=== PATIENT | male | born 1950 | race Caucasian/White ===

== ENCOUNTER 2023-03-14 09:26 | Emergency (ER) | payer BC, SELFPAY ==
--- NOTE | 2023-03-14 09:28 | ECG_ITS ---
Test Reason : CP Blood Pressure : / mmHG Vent. Rate : 073 BPM Atrial Rate : 073 BPM P-R Int : 196 ms QRS Dur : 090 ms QT Int : 374 ms P-R-T Axes : 000 -24 000 degrees QTc Int : 412 ms Normal sinus rhythm Normal ECG No previous ECGs available Referred By: Generic ED Physician Electronically Signed By:Quirino Del Angel
[2023-03-14 09:33] VITALS: BP 151/96; PULSE 73; RESP 19; TEMP 36.6; O2SAT 98; BMI 36.5
--- NOTE | 2023-03-14 09:57 | ED_ITS ---
HPI - Chest Pain General Chief Complaint: Chest Pain Stated Complaint: chest tightness Time Seen by Provider: 03/14/23 09:52 Source: patient Mode of arrival: ambulatory Limitations: no limitations History of Present Illness HPI narrative: Patient is currently on day 6 of prednisone for poison sumac. Before going to bed he had chest tightness upper, with abdominal discomfort and bloating. Patient fell asleep, he then woke up at 3am feeling the same thing but was able to fall back to sleep, then he awoke this morning with the same discomfort. No increased pain with walking, no SOB. Patient does walk and exercise no pain with exertion. complaint: chest pain Onset (ago): hour(s) Related Data Allergies Allergy/AdvReac Type Severity Reaction Status Date / Time No Known Allergies Allergy Verified 03/14/23 09:32 Review of Systems Review of Systems: Yes all other systems are reviewed and are negative Cardiovascular: Comments: upper chest discomfort, Gastrointestinal: Comments: bloating and upper discomfort Neurologic: Denies Sensory deficit (Neuro) [facility] Social History Social History Advance Directives: No Advance Directives Information Provided: No Physical Exam Vital Signs: Vital Signs: Last Vital Signs Temp 98.0 F 03/14/23 14:09 Pulse 68 03/14/23 14:09 Resp 10 L 03/14/23 14:09 BP 152/87 H 03/14/23 14:09 Pulse Ox 98 03/14/23 14:09 O2 Del Method Room Air 03/14/23 14:09 BMI result Body Mass Index 36.5 Const: General: healthy appearing Nutritional Appearance: average body habitus Orientation/consciousness: oriented to person and patient oriented x3 Limitations: no limitations HEENT: Head: Yes normal to inspection Ears: external ears normal General nose exam: Normal external nose present Mouth: Normal oral and palatal mucosa present and oropharynx normal Throat: Yes posterior oropharynx normal Eyes: General: appearance normal, both eyes and all related structures Neck: Other: supple Neck: Yes normal visual inspection Chest: Chest palpation & inspection: normal inspection of the chest Resp: Auscultation: clear to auscultation bilaterally Cardio: Jugular venous distension: no JVD Rate: regular rate Rhythm: regular rhythm Heart sounds: S1 normal heart sound present and S2 normal heart sound present GI: Inspection: Yes normal to inspection Palpation (GI): Soft to palpation, nontender and No hepatosplenomegaly present Auscultation: normal bowel sounds : General: Yes no CVA tenderness Back/Spine/Pelvis: Back: no CVA tenderness Skin: Other: rash to extremities Neuro: General: oriented to person and patient oriented x3 Cranial nerves: Yes CN's II-XII intact bilaterally Motor exam (neuro): 5/5 motor strength present throughout Sensory Exam: No Sensory deficit (Neuro) Extrem: General: Yes normal to inspection Psych: Appearance: grossly normal Course Reevaluation(s) Reevaluation #1: EKG and serial enzymes normal, patient recent prednisone with gastric upset, will have him stop the prednisone and take PPI Time: 14:13 Medications Administered Discontinued Medications Generic Name Dose Route Start Last Admin Trade Name Freq PRN Reason Stop Dose Admin Pantoprazole Sodium 40 mg 03/14/23 10:06 03/14/23 10:50 Pantoprazole Sodium 40 Mg/10 Ml Vial IVPUSH 03/14/23 10:07 40 mg ONCE ONE Administration Medical Decision Making Differential Diagnosis Differential Diagnoses: The differential diagnosis associated with the presentation includes (chest pain, unstable angina, cardiac ischemia, gastritis abdominal discomfort was all considered) Admission/Observation Consideration of admission/observation: Escalation of care including admission/observation considered (upon arrival this 72 yo with chest pain was considered for admission) Lab Data MDM Lab Attestation statement: I reviewed the patient's lab results. 03/14/23 10:18 03/14/23 10:18 Labs: Lab Results 03/14/23 03/14/23 03/14/23 Range/Units 10:18 10:18 10:18 WBC 9.0 (4.8-10.8) X10*3/uL RBC 4.50 L (4.60-5.80) X10*6/uL Hgb 13.2 L (14.0-18.0) g/dl Hct 40.6 L (42.0-52.0) % MCV 90.2 (80.0-98.0) fL MCH 29.3 (27.0-33.0) pg MCHC 32.5 (31.0-36.0) g/dl RDW 12.9 (11.0-16.0) % Plt Count 142 L (160-400) X10*3/uL MPV 9.8 (9.4-12.4) fL Immature Gran % (Auto) 0.7 H (0.0-0.4) % Neut % (Auto) 60.3 (45-73) % Lymph % (Auto) 16.4 L (20-40) % [place] % (Auto) 14.5 H (2-11) % Eos % (Auto) 7.4 H (0-4) % Baso % (Auto) 0.7 (0-2) % Lymph # (Auto) 1.5 (1.2-4.9) X10*3/uL [place] # (Auto) 1.3 H (0.1-1.2) X10*3/uL Eos # (Auto) 0.7 H (0.0-0.4) X10*3/uL Baso # (Auto) 0.1 (0.0-0.2) X10*3/uL Abs Immat Gran (auto) 0.06 H (0.00-0.03) X10*3/uL Absolute Neuts (auto) 5.4 (2.0-8.3) x10*3/uL Absolute Nucleated RBC 0.000 (0.0-0.012) X10*3/uL Nucleated RBC % (auto) 0.0 (0.0-0.2) /100WBC Sodium 140 (135-145) mmol/L Potassium 4.2 (3.3-5.1) mmol/L Chloride 103 (96-108) mmol/L Carbon Dioxide 28 (22-29) mmol/L Anion Gap 13 (12-20) BUN 17 H (9-16) mg/dL Creatinine 0.76 (0.5-1.4) mg/dL Estim Creat Clear Calc 121.9 Estimated GFR > 60 Random Glucose 96 (60-115) mg/dL Calcium 8.9 (8.4-10.2) mg/dL Total Bilirubin 0.7 (0.0-1.0) mg/dL Direct Bilirubin 0.2 (0.0-0.5) mg/dL AST 18 (5-37) U/L ALT 26 (0-40) U/L Alkaline Phosphatase 62 (39-117) U/L Troponin I High Sens < 2.7 (<3.5-35.0) ng/L Total Protein 6.5 (6.5-8.0) g/dL Albumin 3.9 (3.5-5.0) g/dL 03/14/23 Range/Units 12:32 WBC (4.8-10.8) X10*3/uL RBC (4.60-5.80) X10*6/uL Hgb (14.0-18.0) g/dl Hct (42.0-52.0) % MCV (80.0-98.0) fL MCH (27.0-33.0) pg MCHC (31.0-36.0) g/dl RDW (11.0-16.0) % Plt Count (160-400) X10*3/uL MPV (9.4-12.4) fL Immature Gran % (Auto) (0.0-0.4) % Neut % (Auto) (45-73) % Lymph % (Auto) (20-40) % [place] % (Auto) (2-11) % Eos % (Auto) (0-4) % Baso % (Auto) (0-2) % Lymph # (Auto) (1.2-4.9) X10*3/uL [place] # (Auto) (0.1-1.2) X10*3/uL Eos # (Auto) (0.0-0.4) X10*3/uL Baso # (Auto) (0.0-0.2) X10*3/uL Abs Immat Gran (auto) (0.00-0.03) X10*3/uL Absolute Neuts (auto) (2.0-8.3) x10*3/uL Absolute Nucleated RBC (0.0-0.012) X10*3/uL Nucleated RBC % (auto) (0.0-0.2) /100WBC Sodium (135-145) mmol/L Potassium (3.3-5.1) mmol/L Chloride (96-108) mmol/L Carbon Dioxide (22-29) mmol/L Anion Gap (12-20) BUN (9-16) mg/dL Creatinine (0.5-1.4) mg/dL Estim Creat Clear Calc Estimated GFR Random Glucose (60-115) mg/dL Calcium (8.4-10.2) mg/dL Total Bilirubin (0.0-1.0) mg/dL Direct Bilirubin (0.0-0.5) mg/dL AST (5-37) U/L ALT (0-40) U/L Alkaline Phosphatase (39-117) U/L Troponin I High Sens < 2.7 (<3.5-35.0) ng/L Total Protein (6.5-8.0) g/dL Albumin (3.5-5.0) g/dL Independent Interpretation I performed an independent interpretation of an: EKG (sinus [address] or twave changes) Independent Historian Clinical information obtained from an independent historian. History obtained from or confirmed by: Spouse Discharge Plan Discharge Clinical Impression: Chest pain, Gastritis Patient Disposition: Home, Self-Care Instructions: Gastritis (ED), Noncardiac Chest Pain (ED) Referrals: Physician,Nonstaff [Physician] - 3 days
[2023-03-14 10:23] LABS: MANUAL DIFF FLAG NO
[2023-03-14 10:27] LABS: Basophils Absolute Auto 0.1 X10*3/uL (0.0-0.2); Basophils Percent Auto 0.7 % (0-2); Eosinophils Absolute Auto 0.7 X10*3/uL (0.0-0.4); Eosinophils Percent Auto 7.4 % (0-4); Hematocrit 40.6 % (42.0-52.0); Hemoglobin 13.2 g/dl (14.0-18.0); Imm Gran Abs Auto 0.06 X10*3/uL (0.00-0.03); Imm Gran Pct Auto 0.7 % (0.0-0.4); Lymphocytes Absolute Auto 1.5 X10*3/uL (1.2-4.9); Lymphocytes Percent Auto 16.4 % (20-40); Mean Corpuscular HGB Conc 32.5 g/dl (31.0-36.0); Mean Corpuscular Hemoglobin 29.3 pg (27.0-33.0); Mean Corpuscular Volume 90.2 fL (80.0-98.0); Mean Platelet Volume 9.8 fL (9.4-12.4); Monocytes Absolute Auto 1.3 X10*3/uL (0.1-1.2); Monocytes Percent Auto 14.5 % (2-11); Neutrophils Absolute Auto 5.4 x10*3/uL (2.0-8.3); Neutrophils Percent Auto 60.3 % (45-73); Platelet Count 142 X10*3/uL (160-400); Red Cell Distribution Width 12.9 % (11.0-16.0)
[2023-03-14] MEDS: Pantoprazole Sodium 40 MG/10 ML VIAL IVPUSH (10:50)
[2023-03-14 11:59] VITALS: BP 137/84; PULSE 65; RESP 20; TEMP 36.8; O2SAT 97
[2023-03-14 12:26] LABS: Alanine Aminotransferase 26 U/L (0-40); Albumin Level 3.9 g/dL (3.5-5.0); Alkaline Phosphatase 62 U/L (39-117); Anion Gap 13 (12-20); Aspartate Amino Transferase 18 U/L (5-37); Bilirubin Direct 0.2 mg/dL (0.0-0.5); Bilirubin Total 0.7 mg/dL (0.0-1.0); Blood Urea Nitrogen 17 mg/dL (9-16); Calcium 8.9 mg/dL (8.4-10.2); Carbon Dioxide 28 mmol/L (22-29); Chloride 103 mmol/L (96-108); Creatinine Clr Calc Pharmacy 121.9; Estimated Glomerular Filt Rate > 60; Glucose Random 96 mg/dL (60-115); Potassium 4.2 mmol/L (3.3-5.1); Sodium 140 mmol/L (135-145); Total Protein 6.5 g/dL (6.5-8.0)
[2023-03-14 12:34] LABS: Troponin-I High Sensitivity < 2.7 ng/L (<3.5-35.0)
[2023-03-14 13:23] LABS: Troponin-I High Sensitivity < 2.7 ng/L (<3.5-35.0)
[2023-03-14 14:09] VITALS: BP 152/87; PULSE 68; RESP 10; TEMP 36.7; O2SAT 98
== END 2023-03-14 15:08 | disposition home or self-care (01) ==
PROVIDERS: Emergency Provider Emergency Medicine; PCP Internal Medicine
DX: R07.9 Chest pain, unspecified (principal); K29.70 Gastritis, unspecified, without bleeding
CPT/HCPCS: 36415; 80048; 80076; 84484; 85025; 93005; 96374; 99284; 99285

== ENCOUNTER 2024-11-07 13:39 | Emergency (ER) | payer OTHER, SELFPAY ==
--- NOTE | ~2024-11-07 | CT_ITS ---
CLINICAL HISTORY: umbilical hernia. r o strangulation incarceration CT of the abdomen and pelvis utilizing intravenous contrast. No comparison. Findings: There is a small hepatic cyst. The liver is mildly lobulated. The gallbladder is unremarkable. No hydronephrosis. A 2.7 cm left adrenal nodule is consistent with an adenoma. The spleen is unremarkable. Along the anterior aspect of the pancreatic head there is a 1.4 cm hypodensity most likely representing a cyst. No abdominal aortic aneurysm. No diverticulitis is identified. There is moderate stool in the colon. Normal appendix. No bowel obstruction. There is a moderate fat containing umbilical hernia with mild adjacent edema. The bladder is unremarkable. No free fluid is seen in the pelvis. Impression: Fat containing umbilical hernia with mild edema of the fat. Pancreatic hypodensity is likely a cyst but technically indeterminate recommend comparison to previous or follow-up. Other findings as above. This document has been electronically signed by: Fuentes Horowitz MD on 11/07/2024 17:52:07
[2024-11-07 14:06] VITALS: BP 144/92; PULSE 93; RESP 18; TEMP 36.2; O2SAT 99; BMI 34.1
--- NOTE | 2024-11-07 14:06 | ED.ABDPAIN ---
HPI - Abdominal Pain General Chief Complaint: Abdominal Pain Stated Complaint: umbilical hernia sent by [facility] surgeons Time Seen by Provider: 11/07/24 14:38 Source: patient, RN notes reviewed and old records reviewed Mode of arrival: ambulatory Limitations: no limitations History of Present Illness ED Provider: Verito POLLARD narrative: 74-year-old male presents for evaluation abdominal pain. Patient reports that he has had pain around his umbilicus for the last few months going back to August. He had an ultrasound of the specified area last month and was due to have a call with [facility] surgery office tomorrow to discuss this The patient reports around 7:00 a.m. this morning he had an episode of severe abdominal pain. He has had a few of these episodes over the last couple of months but they usually resolve on their own. Patient's pain persisted until he arrived to the ER. Currently his pain is an 8/10 but was as high as an 8/10 He reports having had nausea but no vomiting He has no fevers or chills Related Data Allergies Allergy/AdvReac Type Severity Reaction Status Date / Time No Known Allergies Allergy Verified 11/07/24 14:08 Review of Systems Constitutional: Denies chills and Denies fever(s) Cardiovascular: Denies chest pain Gastrointestinal: Reports abdominal pain, Reports nausea and Denies vomiting Musculoskeletal: Denies back pain Skin/Breast: Denies rash Psychiatric: Denies anxiety PMFSH Social History Social History Advance Directives: No Advance Directives Information Provided: Yes Do you have a plan to hurt others: No Plan Physical Exam ED Vital Signs: Vital Signs - 24 hr 11/07/24 14:06 Temperature 97.2 F Pulse Rate 93 Respiratory Rate 18 Blood Pressure 144/92 H Pulse Oximetry 99 Oxygen Delivery Method Room Air BMI result Body Mass Index 34.1 Const General: healthy appearing, comfortable, no acute distress, alert and awake Nutritional Appearance: well nourished Orientation/consciousness: patient oriented x3 HENMT Head: Yes normocephalic and Yes atraumatic Eyes Eyelids: Yes eyelids normal Conjunctivae: conjunctivae normal Sclerae: sclerae normal Corneas: corneas normal Pupils: Equal, round and reactive pupils present EOM: EOMs intact bilaterally Neck Neck: Yes full ROM Resp Effort & Inspection: normal respiratory effort, able to speak in complete sentences and not labored GI Other: There is no palpable hernia in the periumbilical region Inspection: No distended Palpation (GI): Soft to palpation, not firm, nontender, no guarding and not rigid Skin General skin exam: elasticity normal Neuro General: patient oriented x3 Cranial nerves: Yes Equal, round and reactive pupils present and Yes Bilaterally intact EOM present Cognition (Neuro): normal cognition Extrem Other: Moving all extremities well without any obvious deformities Course Course Course Narrative: This is a Rapid Medical Exam performed in triage by Shantel Pereira PA-C. Full HPI, ROS and PE to be performed by primary ED provider. 74yo M PMHx umbilical hernia presenting to the ED c/o irreducible umbilical since 7AM. Denies N/V, fever PE: abdomen soft +palpable umbilical hernia, non-reducible, ttp Plan: labs, UA Reevaluation(s) Reevaluation #1: Patient's CT scan shows fat containing umbilical hernia, no evidence of bowel obstruction. His lactate is normal, he was stable for discharge at this time. Time: 18:12 Medical Decision Making Medical Decision Making [facility] Narrative: 74-year-old male presents for evaluation abdominal pain. His symptoms though he has a periumbilical hernia that either self reduced or was reduced by the triage provider. Given his level of discomfort on arrival a CT scan was ordered with IV contrast to evaluate for obstruction versus incarceration versus strangulated hernia. I have a low suspicion for this given that the patient's pain has improved and I do not palpate hernia on exam. His labs are reassuring, lactic acid is within normal limits. Differential Diagnosis Differential Diagnoses: The differential diagnosis associated with the presentation includes Abdominal pain Strangulated hernia Incarcerated hernia Bowel obstruction Periumbilical hernia Lab Data [facility] Lab Attestation statement: I reviewed the patient's lab results. No leukocytosis or anemia. Normal platelet count. No significant electrolyte abnormality 11/07/24 14:40 11/07/24 14:40 Labs: Lab Results 11/07/24 11/07/24 Range/Units 14:40 15:04 WBC 7.2 (4.8-10.8) X10*3/uL RBC 4.75 (4.60-5.80) X10*6/uL Hgb 14.4 (14.0-18.0) g/dl Hct 43.1 (42.0-52.0) % MCV 90.7 (80.0-98.0) fL MCH 30.3 (27.0-33.0) pg MCHC 33.4 (31.0-36.0) g/dl RDW 12.6 (11.0-16.0) % Plt Count 171 (160-400) X10*3/uL MPV 9.9 (9.4-12.4) fL Immature Gran % (Auto) 0.3 (0.0-0.4) % Neut % (Auto) 69.2 (45-73) % Lymph % (Auto) 19.2 L (20-40) % [place] % (Auto) 9.8 (2-11) % Eos % (Auto) 1.1 (0-4) % Baso % (Auto) 0.4 (0-2) % Lymph # (Auto) 1.4 (1.2-4.9) X10*3/uL [place] # (Auto) 0.7 (0.1-1.2) X10*3/uL Eos # (Auto) 0.1 (0.0-0.4) X10*3/uL Baso # (Auto) 0.0 (0.0-0.2) X10*3/uL Abs Immat Gran (auto) 0.02 (0.00-0.03) X10*3/uL Absolute Neuts (auto) 5.0 (2.0-8.3) x10*3/uL Absolute Nucleated RBC 0.000 (0.0-0.012) X10*3/uL Nucleated RBC % (auto) 0.0 (0.0-0.2) /100WBC PT 12.3 (10.9-12.4) SEC INR 1.1 (0.9-1.1) Sodium 141 (135-145) mmol/L Potassium 4.1 (3.3-5.1) mmol/L Chloride 106 (96-108) mmol/L Carbon Dioxide 28 (22-29) mmol/L Anion Gap 11 L (12-20) BUN 18 H (9-16) mg/dL Creatinine 0.82 (0.5-1.4) mg/dL Estim Creat Clear Calc 106.1 Estimated GFR > 60 Random Glucose 94 (60-115) mg/dL Lactic Acid 0.8 (0.5-2.0) mmol/L Calcium 9.3 (8.4-10.2) mg/dL Magnesium 1.9 (1.6-2.6) mg/dL Total Bilirubin 0.7 (0.0-1.0) mg/dL Direct Bilirubin 0.2 (0.0-0.5) mg/dL AST 22 (5-37) U/L ALT 21 (0-40) U/L Alkaline Phosphatase 48 (39-117) U/L Total Protein 7.4 (6.5-8.0) g/dL Albumin 4.2 (3.5-5.0) g/dL Lipase 60 (8-78) U/L Urine Color Yellow Urine Appearance Clear Urine pH 7.0 (5.0-9.0) Ur Specific [place] 1.020 (1.005-1.025) Urine Protein Negative (Neg-Trace) mg/dL Urine Glucose (UA) Negative (Negative) mg/dL Urine Ketones Trace (Negative) mg/dL Urine Blood Negative (Negative) Urine Nitrite Negative (Negative) Ur Leukocyte Esterase Negative (Negative) Radiology Impression Discussion of test interpretation with radiology: I have reviewed the radiologist's reading. Radiologist Impression: Findings: There is a small hepatic cyst. The liver is mildly lobulated. The gallbladder is unremarkable. No hydronephrosis. A 2.7 cm left adrenal nodule is consistent with an adenoma. The spleen is unremarkable. Along the anterior aspect of the pancreatic head there is a 1.4 cm hypodensity most likely representing a cyst. No abdominal aortic aneurysm. No diverticulitis is identified. There is moderate stool in the colon. Normal appendix. No bowel obstruction. There is a moderate fat containing umbilical hernia with mild adjacent edema. The bladder is unremarkable. No free fluid is seen in the pelvis. Impression: Fat containing umbilical hernia with mild edema of the fat. Pancreatic hypodensity is likely a cyst but technically indeterminate recommend comparison to previous or follow-up. Other findings as above. This document has been electronically signed by: Fuentes Horowitz MD on 11/07/2024 17:52:07 Medications Administered Discontinued Medications Generic Name Dose Route Start Last Admin Trade Name Freq PRN Reason Stop Dose Admin Iohexol 85 ml 11/07/24 16:41 11/07/24 16:42 Iohexol 350 Mg/Ml 100 Ml Infus..Btl IV 11/07/24 16:42 85 ml ONCE ONE Administration Discharge Plan Discharge Clinical Impression: Hernia, umbilical Patient Disposition: Home, Self-Care Instructions: Umbilical Hernia (ED) Additional Instructions: Your CT scan showed a fat containing umbilical hernia, no evidence of bowel obstruction or incarcerated hernia. Follow-up with general surgery. You may follow-up with [facility] surgeons or Dr. Acevedo at this facility. Return for new or worsening symptom Referrals: Nicko Acevedo MD [Physician] - (umbilical hernia) Print Language: Indonesian
[2024-11-07 14:46] LABS: MANUAL DIFF FLAG NO
[2024-11-07 14:47] LABS: Basophils Percent Auto 0.4 % (0-2); Eosinophils Absolute Auto 0.1 X10*3/uL (0.0-0.4); Eosinophils Percent Auto 1.1 % (0-4); Hematocrit 43.1 % (42.0-52.0); Hemoglobin 14.4 g/dl (14.0-18.0); Imm Gran Abs Auto 0.02 X10*3/uL (0.00-0.03); Imm Gran Pct Auto 0.3 % (0.0-0.4); Lymphocytes Absolute Auto 1.4 X10*3/uL (1.2-4.9); Lymphocytes Percent Auto 19.2 % (20-40); Mean Corpuscular HGB Conc 33.4 g/dl (31.0-36.0); Mean Corpuscular Hemoglobin 30.3 pg (27.0-33.0); Mean Corpuscular Volume 90.7 fL (80.0-98.0); Mean Platelet Volume 9.9 fL (9.4-12.4); Monocytes Absolute Auto 0.7 X10*3/uL (0.1-1.2); Monocytes Percent Auto 9.8 % (2-11); Neutrophils Percent Auto 69.2 % (45-73); Platelet Count 171 X10*3/uL (160-400); Red Blood Count 4.75 X10*6/uL (4.60-5.80); Red Cell Distribution Width 12.6 % (11.0-16.0); White Blood Count 7.2 X10*3/uL (4.8-10.8)
[2024-11-07 14:52] LABS: INTERNATIONAL NORM RATIO 1.1 (0.9-1.1); Prothrombin Time 12.3 SEC (10.9-12.4)
[2024-11-07 15:06] LABS: Alanine Aminotransferase 21 U/L (0-40); Albumin Level 4.2 g/dL (3.5-5.0); Anion Gap 11 (12-20); Aspartate Amino Transferase 22 U/L (5-37); Bilirubin Direct 0.2 mg/dL (0.0-0.5); Bilirubin Total 0.7 mg/dL (0.0-1.0); Blood Urea Nitrogen 18 mg/dL (9-16); Calcium 9.3 mg/dL (8.4-10.2); Carbon Dioxide 28 mmol/L (22-29); Chloride 106 mmol/L (96-108); Creatinine Clr Calc Pharmacy 106.1; Estimated Glomerular Filt Rate > 60; Glucose Random 94 mg/dL (60-115); Lipase 60 U/L (8-78); Magnesium 1.9 mg/dL (1.6-2.6); Potassium 4.1 mmol/L (3.3-5.1); Sodium 141 mmol/L (135-145); Total Protein 7.4 g/dL (6.5-8.0)
[2024-11-07 15:10] LABS: Appearance Urine Clear; Color Urine Yellow; Glucose Urine UA Negative (Negative); Leukocyte Esterase Urine Negative (Negative); Nitrite Urine Negative (Negative); Urine Blood Negative (Negative); Urine Ketones Trace mg/dL (Negative); Urine Protein Negative (Neg-Trace)
--- NOTE | 2024-11-07 15:26 | PC.NURSE ---
pt is caox4 and in no distress. his abd is soft and nontender with no distention or discoloration noted. pt is awaitng ct with comtrast, a 20 ga iv was placed in r ac.
[2024-11-07 15:31] LABS: Lactic Acid 0.8 mmol/L (0.5-2.0)
--- OUTSIDE RECORDS SUMMARY | 2024-11-07 16:22 | XMS_ITS | Encounter Summary ---
Author Organization [facility] Address [phone] [facility] [place] [address] Care Team Providers Care Oyster Culturist Name Role Phone Wilmer Menendez MD Primary Care Provider Booker Medina MD Unavailable [phone] Encounter Details Date Type Department Care Team (Late st Contact Info) Description 12/14/2019 Procedure Pass [facility] [address] [place] [id number] Social History Tobacco Use Types Packs/Day Years Used Date Smoking Tobacco: Never Smokeless Tobacco: Never Alcohol Use Standard Drinks/Week Comments Yes 6 (1 standard drink = 0.6 oz pur e alcohol) Sex and Gender Information Value Date Recorded Sex Assigned at Male 12/07/2019 4:21 PM EST Gender Identity Male 12/07/2019 4:21 PM EST Sexual Orientation Straight 12/07/2019 4: 21 PM EST documented as of this encounter Plan of Treatment Not on file documented as of this encounter Visit Diagnoses Not on filedocumented in this encounter Care Teams Oyster Culturist Relationship Specialty Start Date End Date Wilmer Menendez MD [address] [place] [id number] PCP - General Internal Medicine 11/02/19 Booker Medina MD [address] [place] [address] [email or web address] Vascular Surgery 2/28/20 documented as of this encounter Additional Source Comments The information contained in this document represents components of the legal health record. It is not the complete legal health record.[facility]
--- OUTSIDE RECORDS SUMMARY | 2024-11-07 16:23 | XMS_ITS | Encounter Summary ---
Author Organization [facility] Address [phone] [facility] [place] [address] Care Team Providers Care Debt Management Counselor Name Role Phone Wilmer Menendez MD Primary Care Provider Booker Medina MD Unavailable [phone] Encounter Details Date Type Department Care Team (Late st Contact Info) Description 11/30/2019 Prep for Surgery Sidney Shah MD [address] [address] Order Mode, Net Software Engineer [address] [place] [address] Social History Tobacco Use Types Packs/Day Years Used Date Smoking Tobacco: Never Assessed Sex and Gender Information Value Date Recorded Sex Assigned at Male 12/07/2019 4:21 PM EST Gender Identity Male 12/07/2019 4:21 PM EST Sexual Orientation Straight 12/07/2019 4: 21 PM EST documented as of this encounter Plan of Treatment Not on file documented as of this encounter Visit Diagnoses Not on filedocumented in this encounter Care Teams Debt Management Counselor Relationship Specialty Start Date End Date Wilmer Menendez MD [address] [place] [id number] PCP - General Internal Medicine 11/02/19 Booker Medina MD [address] [place] [address] Vascular Surgery 12/02/19 documented as of this encounter Additional Source Comments The information contained in this document represents components of the legal health record. It is not the complete legal health record.[facility]
--- OUTSIDE RECORDS SUMMARY | 2024-11-07 16:23 | XMS_ITS | Clinical Summary ---
Author Organization [facility] Address [phone] [facility] [place] [address] Care Team Providers Care Executive Compensation Analyst Name Role Phone Wilmer Menendez MD Primary Care Provider Booker Medina MD Unavailable [phone] Allergies No known active allergies Medications Medication Sig Dispensed Refills Start Date End Date Status levothyroxine (SYNTHROID, LEVOTHROID) 200 MCG tablet Take 200 mcg by mouth every morning. Active ascorbic acid, vitamin C, (VITAMIN C) 500 MG tablet Take 1,000 mg by mouth daily. Active cyanocobalamin, vitamin B-12, 1000 MCG tablet Take 1,000 mcg by mouth daily. Active niacin 50 MG tablet Take 50 mg by mouth daily with breakfast. Active apixaban (ELIQUIS) 5 mg tablet Take 1 tablet (5 mg total) by mouth 2 (two) times a day. 12/17/2019 Active acetaminophen (TYLENOL) 325 mg tablet Take 3 tablets (975 mg total) by mouth every 8 (eight) hours. 0 12/15/2019 Active oxyCODONE 5 MG immediate release tablet Take 1-2 tablets (5-10 mg total) by mouth every 4 (four) hours as needed for severe pain. Partial fill ok 40 tablet 01/19/2020 Active Active Problems Problem Noted Date Diagnosed Date Primary osteoarthritis of right knee 12/15/2019 S/P total knee replacement, right 12/14/2019 Social History Tobacco Use Types Packs/Day Years Used Date Smoking Tobacco: Never Smokeless Tobacco: Never Alcohol Use Standard Drinks/Week Comments Yes 6 (1 standard drink = 0.6 oz pur e alcohol) Education Answer Date Recorded Are you interested in more education? Not on corey e 01/30/2023 Are you concerned about learning? Not on file 01/30/2023 No 01/30/2023 No 01/30/2023 Digital Access Answer Date Recorded No 03/03/2023 No 03/03/2023 Reliable internet access at home? Not on file 03/03/2023 Device with a working camera? Not on file Sex and Gender Information Value Date Recorded Sex Assigned at Male 12/07/2019 4:21 PM EST Gender Identity Male 12/07/2019 4:21 PM EST Sexual Orientation Straight 12/07/2019 4: 21 PM EST Last Filed Vital Signs Vital Sign Reading Time Taken Comments Blood Pressure 146/82 12/15/2019 12:00 PM EDT Pulse 89 12/15/2019 5:55 AM EDT Temperature 37.4 ??C (99.3 ??F) 12/15/2019 12:00 PM E DT Respiratory Rate 20 12/15/2019 12:00 PM EDT Oxygen Saturation 95% 12/15/2019 7:58 AM EDT Inhaled Oxygen Concentration - - Weight 116.6 kg (257 lb) 12/14/2019 11:24 AM EDT Height 182.9 cm (6') 12/14/2019 11:24 AM EDT Body Mass Index 34.86 12/14/2019 11:24 AM EDT Plan of Treatment Health Maintenance Due Date Last Done Comments LIPID PANEL 1952 TSH LEVEL 1952 DEPRESSION SCREENING 1964 HEPATITIS B SCREENING 1970 HEPATITIS C SCREENING 1970 COLOGUARD 1997 COLONOSCOPY 1997 COLORECTAL CANCER SCREENING 1997 FIT TEST 1997 FOBT 1997 SIGMOIDOSCOPY 1997 VIRTUAL COLONOSCOPY 1997 CREATININE LEVEL 12/14/2020 12/15/2019, 11/30/2019 Adult Td,Tdap Booster 12/16/2021 12/17/2011, 002 INFLUENZA VACCINE (#1) 2024 0, 08/15/2019, 06/29/2018, Additional history exists COVID-19 VACCINE ( season) 2024 12/16/2020 RSV VACCINE (1 - 1-dose 75+ series) 2027 PNEUMOCOCCAL VACCINES (50+ years) Completed 07/15/2018, 06/02/2017 SMOKING STATUS SCREENING (Once After 26 Yrs) Completed 12/14/2019 ZOSTER VACCINES Completed 03/19/2020, 11/30/2019 HEPATITIS A VACCINES Aged Out No long er eligible based on patient's age to complete this topic HEPATITIS B VACCINES Aged Out No long er eligible based on patient's age to complete this topic HIB VACCINES Aged Out No longer eligi ble based on patient's age to complete this topic MENINGOCOCCAL VACCINES (ACWY) Aged Out No longer eligible based on patient's age to complete this topic Medical Devices Implanted Type Area Pill Maker Device Identifier Shelf Expiration Date Model / Serial / Lot Knee Knee Patella 38x9.5mm Persona All Polyethylene Cemented Conventional - [id number] Implanted:Qty: 1 on 12/14/2019 by Sidney Shah MD at [facility] Right: Patella [employer]HAN / DIV OF [employer] 02/01/2026 [id number] / / [id number] Knee Insert 10mm Component Articulate Surface Persona Polyethylene Cruciate Retaining Fixed Conventional Right - [id number] Implanted:Qty: 1 on 12/14/2019 by Sidney Shah MD at [facility] Right: Knee [employer]HAN / DIV OF [employer]OL [employer] 07/04/2027 [id number] / / [id number] Knee Implant 5.0deg Component Tibial Persona Titanium Stemmed Cemented Rt Size H - [id number] Implanted:Qty: 1 on 12/14/2019 by Sidney Shah MD at [facility] Right: Knee [employer]AHN / DIV OF [employer] 03/04/2029 [id number] / / [id number] Knee Implant Component Size 12 Femoral Persona [place] Cement Cruciate Retaining Standard Right - [id number] Implanted:Qty: 1 on 12/14/2019 by Sidney Shah MD at [facility] Right: Knee [employer]HAN / DIV OF [employer] 05/04/2029 [id number] / / [id number] Cement Bone [place] R High Viscosity 1x40g Cs/20ea - [id number] Implanted:Qty: 2 on 12/14/2019 by Sidney Shah MD at [facility] Right: Knee [employer] [id number] / / Procedures Procedure Name Priority Date/Time Associated Diagnosis Comments BASIC METABOLIC PANEL Routine 12/15/2019 2:18 AM EDT from Last 3 Months or Most Recently Relevant to Health Maintenance Results * (ABNORMAL) Basic metabolic panel (12/15/2019 2:18 AM EDT) SODIUM 139 135 - 145 mmol/L [facility] POTASSIUM 4.4 3.4 - 5.0 mmol/L [facility] CHLORIDE 101 98 - 108 mmol/L [facility] CO2 25 23 - 32 mmol/L [facility] BUN 11 8 - 25 mg/dL [facility] CREATININE 0.75 0.60 - 1.50 mg/dL [facility] GLUCOSE 143(H) 70 - 110 mg/dL [facility] CALCIUM 9.0 8.5 - 10.5 mg/dL [facility] EGFR 95 >59 mL/min/1. 73m2 [facility] Comment:If patient is black, multiply result by 1.159. Estimated glomerular filtration rate calculated using the CKD-EPI equation. ANION GAP 13 3 - 17 mmol/L [facility] Blood 12/15/2019 2:18 AM EDT 12/15/2019 2:21 AM EDT Evan Lara MD LAB BLOOD ORDERABLES [facility] [address] [place] [address] from Last 3 Months or Most Recently Relevant to Health Maintenance Advance Directives * Full Code (Presumed) (Latest Code Status on File) Date Activated Date Inactivated Comments 12/14/2019 5:42 PM 12/15/2019 8:17 PM * Full Code (Presumed) Date Activated Date Inactivated Comments 12/14/2019 11:08 AM 12/14/2019 5:42 PM * Full Code (Presumed) Date Activated Date Inactivated Comments 12/14/2019 11:08 AM 12/14/2019 11:08 AM Care Teams Executive Compensation Analyst Relationship Specialty Start Date End Date Wilmer Menendez MD [address] [place] [id number] PCP - General Internal Medicine 11/02/19 Booker Medina MD [address] [place] [id number] [email or web address] Vascular Surgery 12/02/19 Additional Source Comments The information contained in this document represents components of the legal health record. It is not the complete legal health record.[facility]
[2024-11-07] MEDS: iohexoL 350 MG/ML 100 ML INFUS..BTL 85 ML IV (16:42)
[2024-11-07 17:37] LABS: Alkaline Phosphatase 48 U/L (39-117)
--- NOTE | 2024-11-07 17:58 | PC.NURSE ---
pt is awaiting ct report. he is resting comfortably and offers no complaint.
[2024-11-07 18:35] VITALS: BP 131/79; PULSE 78; RESP 16; TEMP 36.9; O2SAT 98
== END 2024-11-07 18:37 | disposition home or self-care (01) ==
PROVIDERS: Physician Assistant; Emergency Provider Emergency Medicine; PCP Internal Medicine
DX: K42.9 Umbilical hernia without obstruction or gangrene (principal); R10.2 Pelvic and perineal pain; Z79.899 Other long term (current) drug therapy
CPT/HCPCS: 36415; 74177; 80048; 80076; 81003; 83605; 83690; 83735; 85025; 85610; 99282; 99284; Q9967

== ENCOUNTER → 2024-11-07 14:08 | Outpatient (BNV) | payer OTHER, SELFPAY | PROVIDERS: Emergency Provider Emergency Medicine; PCP Internal Medicine; Visit Provider Radiology Diagnostic Radiology | DX: K42.9 Umbilical hernia without obstruction or gangrene (principal) | CPT/HCPCS: 74177 ==

== ENCOUNTER 2024-11-17 11:14 | Outpatient (AMB) | payer OTHER, SELFPAY ==
--- NOTE | 2024-11-17 11:15 | MHC.OFFVIS ---
Vital Signs 11/17/24 11:21 Height 6 ft Weight 251 lb BMI 34.0 BP 114/69 Blood Pressure Location Rt brachial Position Sitting Pulse 80 Intake Visit Reasons: . Intake Note: This patient presents for umbilical hernia. Pt c/o; umbilical region, periumbilical discomfort and possible lump for over 6 months. Detailer Required: No Accompanied by: Self / Same As Patient Allergies No Known Allergies Allergy (Verified 11/17/24 11:23) Medication List - Last Reconciled 11/17/24 by Nicko Acevedo MD No Known Home Meds HPI HPI .: Details: 74-year-old male referred for an umbilical hernia. He apparently went to the ER 2 days ago because of what he felt was pain on the umbilical area. He says that he has always had this reducible lump for a few months but he thought that this was not reducible at that time. He says that when he got to the ER, this already reduced. He had a CAT scan done in the ER which showed a fat containing umbilical hernia. He was therefore told to see me for his umbilical hernia. He denies GI complaints . He also had been recently diagnosed to have atrial fibrillation and he is supposed to see a health science writer tomorrow. [facility] Medical History (Updated 11/17/24 @ 11:26 by LARRY Reyes) Overweight Obesity, Class I, BMI 30.0-34.9 (see actual BMI) Hypothyroidism History of DVT in adulthood Family history of colon cancer Encounter for screening colonoscopy Surgical History (Updated 11/17/24 @ 11:28 by LARRY Reyes) H/O colonoscopy (~2005) History of total knee replacement History of vein stripping Hx of surgical procedure History of colonoscopy with polypectomy (~06/26/16) Family History (Updated 11/17/24 @ 11:29 by LARRY Reyes) Other Colon cancer Social History Alcohol intake: never Patient Tobacco Use Status: Former Tobacco user Review of Systems Const Denies chills and Denies fever(s) Card Denies chest pain, Denies dyspnea and Denies dyspnea on exertion Resp Denies cough, Denies dyspnea and Denies dyspnea on exertion GI Denies hematochezia and Denies change in bowel habits Denies hematuria and Denies difficulty urinating Musc Denies back pain and Denies limited range of motion Neuro Denies focal weakness and Denies convulsions Psych Denies depression and Denies mood swings Physical Exam Vital Signs: Last Vital Signs Pulse 80 11/17/24 11:21 BP 114/69 11/17/24 11:21 BMI result Body Mass Index 34.0 Const Other: Appears overweight General: comfortable and no acute distress Orientation/consciousness: patient oriented x3 Neck Neck: Yes no lymphadenopathy Resp Auscultation: clear to auscultation bilaterally Cardio Rhythm: regular rhythm GI Other: Umbilical hernia, partially reducible, about 2 cm Palpation (GI): Soft to palpation, nontender and no guarding Neuro General: patient oriented x3 Assessment & Plan Assessment & Plan (1) Hernia, umbilical: Code(s): K42.9 - Umbilical hernia without obstruction or gangrene Category: Medical Plan He has a reducible umbilical hernia as described above. I explained to him the technique of repair of the hernia with possible mesh placement. I reviewed the risks including but not limited to bleeding, infections, recurrence, injury to other intra-abdominal organs, postop pain, as well as the benefits and alternatives. I reviewed with him what to expect postoperatively. He says he is going to see his health science writer with regards to his new onset atrial fibrillation and we will call me wants to he is ready to schedule for surgery. He understands that if he is placed on an anticoagulant, this will be stopped prior to his surgery. Coding Level of Care Code New Pt Level 3 (12401) Diagnoses Hernia, umbilical K42.9
[2024-11-17 11:21] VITALS: BP 114/69; PULSE 80; BMI 34.0
--- OUTSIDE RECORDS SUMMARY | 2024-11-17 11:53 | XMS_ITS | Clinical Summary ---
Author Organization [facility] Address [address] [facility] [place] [address] Care Team Providers Care Modern Languages Professor Name Role Phone Unavailable Primary Care Provider Unavailabl e Social History Tobacco Use Types Packs/Day Years Used Date Smoking Tobacco: Never Assessed Sex and Gender Information Value Date Recorded Sex Assigned at Not on file Legal Sex Male 12:12 AM EST Gender Identity Not on file Sexual Orientation Not on file Plan of Treatment Health Maintenance Due Date Last Done Comments Colorectal Cancer: COLONOSCO PY Screening every 10 yrs (or Modifier) 1952 Depression: Screening Annual ly using PHQ-2/9 in Adults 18 yrs or above (or HM Modifier)([facility]) 1970 Hepatitis C Virus Infection in Adolescents and Adults: Screening (or Modifier) ([facility]) 1970 [facility] Screening Reminder: Shelly dooley for all adults ([facility]) 1970 Tobacco Smoking Cessation: i n Adults excluding Women: Behavioral and Pharmacotherapy Interventions ([facility]) 1970 DTaP/Tdap/Td Vaccines ([facility]) (1 - Tdap) 1971 Lipid Screening: Every 5 yrs for Men aged 35+ (or HM Modifier) ([facility]) 1988 Colorectal Cancer Screening 45 -75 Yrs (or HM Modifier ) 1997 Colorectal Cancer: FLEXIBLE SIGMOIDOSCOPY Screening every 5 yrs 1997 Colorectal Cancer: Fecal Imm unochemical Test (FIT) Annually [facility] 1997 Colorectal Cancer: High-sens itivity gFOBT Screening Annually [facility] 1997 Colorectal Cancer: Stool Col oguard Screening every 3 yrs 1997 Colorectal Cancer:CT Colonography Screening every 5 yr s 1997 Zoster/Shingles Vaccine Seri es Screening: Adults aged 18+ yrs (or HM Modifiers)([facility]) (1 of 2) 2002 Pneumococcal Vaccination Scr eening: Patients 65+ yrs of age ([facility]) (1 of 1 - PCV) 2017 Flu Vaccination: Ages 65+: Y early High Dose Recommended (or Modifier)([facility]) 05/05/2024 COVID-19 Vaccine Screening: Initial Series and Booster Status ([facility]) ( - 2023-25 season) 2024 RSV Vaccines (1 - 1-dose 75+ series) 2027 Medical Devices Not on file Insurance [facility]
--- OUTSIDE RECORDS SUMMARY | 2024-11-17 11:53 | XMS_ITS | Continuity of Care Document ---
Author Organization [facility] Address [address] [place] [address] ve [address] [place] [address]- Care Team Providers Care Coal Trimmer Name Role Phone Gemma EVANGELISTA, Wilmer Rosa Primary Care Physician Encounter [facility] [place] Date(s): 11/08/24 - 11/15/[address] [place] [address]- Attending Physician: Akin Vazquez Encounter Type: Office Visit Allergies, Adverse Reactions, Alerts No Known Allergies Immunizations Given and Recorded Vaccine Date Status Refusal Reason tetanus/diphtheria/pertussis, acel(Tdap) 1 12/17/11 Given influenza virus vaccine, inactivated 2 06/19/10 Gi geo influenza virus vaccine, inactivated 3 10/27/08 Gi geo tetanus-diphtheria toxoids (Td) 08/26/02 Given 1Admin Note: GIVEN W/O INCIDENT VIS SHEET GIVEN (10/28/2011) 2Admin Note: MANUFACTURE BIOMEDICAL INFO SHEET GIVEN GIVEN W/O INCIDENT 3Admin Note: patient declined no longer available Medications Co-Q10 By Mouth, 0 Refills, Maintenance, 08/22/22 11:11:00 AM EST, Partial fill upon patient request if the prescription is for a schedule II opioid drug. Start Date: 08/22/22 Status: Ordered Repeat number: 1 Eliquis 2.5 mg oral tablet 1 tablet, By Mouth, 2 times a day, # 180 tablet, 1 Refills, 12/25/22 7:27:00 AM EDT, [facility], 183, cm, 08/22/22 11:10:00 EST, Height, 126, kg, 03/08/22 12:36:00 EDT, Dry Weight Start Date: 12/25/22 Status: Ordered Quantity: 180.0 Unit: tablet Repeat number: 2 levothyroxine 0.2 mg oral tablet 1 tablet = 0.2 mg, By Mouth, Daily, take 2 pills on one day a week and 1 pill on 6 days, # 34 tablet, 3 Refills, Maintenance, 12/31/11 11:06:09 AM EDT, Tablet, [facility] Start Date: 12/31/11 Status: Ordered Quantity: 34.0 Unit: tablet Repeat number: 4 PEG-3350 with Electrolytes (Eqv-GoLYTELY) oral powder for reconstitution See Instructions, per GI office, # 4,000 mL, 0 Refills, Maintenance, 08/18/24 3:38:00 PM EST, [facility], Partial fill upon patient request if the prescription is for a schedule IIopioid drug., per GI office, 183, cm, 12/10/23 12:35:00 EST, Height Start Date: 08/18/24 Status: Ordered Quantity: 4000.0 Unit: mL Repeat number: 1 PEG-3350 with Electrolytes Lemon (Eqv-GoLYTELY) oral powder for reconstitution See Instructions, By Mouth. per GI protocol, # 4,000 mL, 0 Refills, Maintenance, 05/02/24 3:53:00 PMEDT, [facility], Partial fill upon patient request if the prescription is for a schedule II opioid drug., By Mouth. per GI protocol, 183, cm, 12/10/23 12:35:00 EST, Height Start Date: 05/02/24 Status: Ordered Quantity: 4000.0 Unit: mL Repeat number: 1 Vitamin B12 500 mcg oral tablet 1 tablet, By Mouth, Daily, # 90 tablet, 0 Refills, Maintenance, 10/01/10 2:28:41 PM EST, Tablet Start Date: 10/01/10 Status: Ordered Quantity: 90.0 Unit: tablet Repeat number: 1 Vitamin C TR 1000 mg oral tablet 1 tablet, By Mouth, Daily, # 30 tablet, 0 Refills, Maintenance, 10/01/10 2:28:28 PM EST, Tablet Start Date: 10/01/10 Status: Ordered Quantity: 30.0 Unit: tablet Repeat number: 1 Vitamin D3 By Mouth, 0 Refills, Maintenance, 10/14/19 9:13:00 AM EST Start Date: 10/14/19 Status: Ordered Repeat number: 1 Zinc = 140 mg, By Mouth, Daily, 0 Refills, Maintenance, 04/19/21 9:44:00 AM EDT, Partial fill upon patient request if the prescription is for a schedule II opioid drug. Start Date: 04/19/21 Status: Ordered Repeat number: 1 Problem List Condition Confirmation Course Effective Dates Status H ealth Status Informant Family history of colon cancer Confirmed Active History of DVT in adulthood Confirmed Active Hypothyroidism Confirmed Active Obese class I Confirmed Active IBRAHIMA - Obstructive sleep apnea Confirmed Active Overweight Confirmed Active Encounter for screening colonoscopy Confirmed Active Social History Social History Type Response Smoking Status Former smoker, quit more than 30 days ago entered on: 10/14/19 Sex Male Sex Representation Male (finding) Patient Care team information Care Team Personnel Name: Gemma EVANGELISTA, Wilmer Rosa Position: S Physician - Primary Care Member Role: PCP Address: [address] [place] [address] Telecom: Care Team Related Persons Name: JENN SALAZAR Insurance Providers Guarantor name: KASH SALAZAR Health Plan Information #: 1 Payer: [employer] H[employer] POS Member Number: [id number] Policy Number: NA Group Number: [id number] Health Plan Information #: 2 Payer: [employer] Member Number: [id number] Policy Number: NA Group Number: [id number]
--- OUTSIDE RECORDS SUMMARY | 2024-11-17 11:53 | XMS_ITS | Continuity of Care Document ---
Author Organization [facility] Address [address] [place] [address] [address] [place] [address]- Care Team Providers Care Manager Operations And Procurement Name Role Phone Gemma EVANGELISTA, Wilmer Rosa Primary Care Physician Encounter [facility] [place] Date(s): 10/17/24 - 11/16/[address] [place] [address]- Encounter Type: Triage Allergies, Adverse Reactions, Alerts No Known Allergies [...] tablet, 1 Refills, 12/25/22 7:27:00 AM EDT, [facility], 183, cm, 08/22/22 11:10:00 EST, Height, [...] 10/01/10 2:28:28 PM EST, Tablet Start Date: 12/28/10 Status: Ordered Quantity: 30.0 Unit: tablet Repeat [...] Care team information Care Team Personnel Name: Wilmer Menendez MD Position: S Physician - Primary Care Member Role: PCP Address: [address] [place] [address] Telecom: Care Team Related Persons Name: JENN SALAZAR Insurance Providers Guarantor name: KASH SALAZAR Health Plan Information #: 1 Payer: [employer] H[employer] POS Member Number: NA Policy Number: NA Group Number: NA Health Plan Information #: 2 Payer: [employer] C[employer] LINK Member Number: NA Policy Number: NA Group Number: NA
== END 2024-11-17 11:32 | disposition home or self-care (01) ==
PROVIDERS: PCP Internal Medicine; Visit Provider Surgery
DX: K42.9 Umbilical hernia without obstruction or gangrene (principal)
CPT/HCPCS: 99203

== ENCOUNTER → 2024-11-17 11:14 | Outpatient (BNVA) | payer OTHER, SELFPAY | PROVIDERS: PCP Internal Medicine; Visit Provider Surgery ==

== ENCOUNTER 2025-02-13 10:47 | Outpatient (AMB) | payer OTHER, MEDICARE, SELFPAY ==
--- NOTE | 2025-02-13 10:50 | MHC.OFFVIS ---
Vital Signs 02/13/25 10:57 Height 6 ft Weight 247 lb BMI 33.5 BP 149/80 H Blood Pressure Location Rt brachial Position Sitting Pulse 61 Intake Visit Reasons: pre-surgery visit, pt had ablation 01/16/2025 Intake Note: Patient being seen as an urgent appointment. C/o umbilical hernia pain that started this morning. Reports hernia bulging out and cannot push it back in. Was advised by pants presser to hold off with surgery due to Eliquis. Rod And Tube Straightener Required: No Accompanied by: Self / Same As Patient Allergies No Known Allergies Allergy (Verified 02/13/25 10:56) HPI HPI pre-surgery visit, pt had ablation 01/16/2025: Details: 74-year-old male here for follow-up for an umbilical hernia. He apparently went to the ER in November 2024 because of what he felt was pain on the umbilical area. He says that he has always had this reducible lump for a few months but he thought that this was not reducible at that time. He says that when he got to the ER, this already reduced. He had a CAT scan done in the ER which showed a fat containing umbilical hernia. I had seen him last month because of this. However, he was scheduled to undergo ablation by the pants presser because of his atrial fibrillation so he had decided to postpone his umbilical hernia repair. He had ablation last 01/16/2025 in [place]. He says that this morning, he woke up with the hernia being ?larger . He said that he usually is able to reduce this by lying down but he could not and he was having pain so he decided to go the emergency room. However, he already had an appointment with me today so I gave him the option of seeing me here in the office so he decided to come here. He says his pain is similar to his pain when he went to the ER last November 2024. He denies any nausea or vomiting. He says that his pain is localized with the umbilicus. [facility] Medical History (Updated 02/24/25 @ 10:11 by Crystal Nicholas RN) Sleep apnea Overweight Obesity, Class I, BMI 30.0-34.9 (see actual BMI) Hypothyroidism History of DVT in adulthood Family history of colon cancer Encounter for screening colonoscopy Surgical History (Updated 02/24/25 @ 10:10 by Crystal Nicholas RN) History of cardiac ablation for atrial fibrillation H/O colonoscopy (~2005) History of total knee replacement History of vein stripping Hx of surgical procedure History of colonoscopy with polypectomy (~06/26/16) Family History Other Colon cancer Social History Alcohol intake: never Patient Tobacco Use Status: Former Tobacco user Review of Systems Const Denies chills and Denies fever(s) Card Denies chest pain, Denies dyspnea and Denies dyspnea on exertion Resp Denies cough, Denies dyspnea and Denies dyspnea on exertion GI Denies hematochezia and Denies change in bowel habits Denies hematuria and Denies difficulty urinating Musc Denies back pain and Denies limited range of motion Neuro Denies focal weakness and Denies convulsions Psych Denies depression and Denies mood swings Physical Exam Vital Signs: Last Vital Signs Pulse 61 02/13/25 10:57 BP 149/80 H 02/13/25 10:57 BMI result Body Mass Index 33.5 Const Other: Ambulating, describes pain on the umbilicus General: comfortable and no acute distress Orientation/consciousness: patient oriented x3 Neck Neck: Yes no lymphadenopathy Resp Auscultation: clear to auscultation bilaterally Cardio Rhythm: regular rhythm GI Other: Umbilical hernia, tender, with note of hernia contents initially felt to be large; I was able to reduce this with him lying down and relaxed; he states he felt much better after this Palpation (GI): Soft to palpation, nontender and no guarding Neuro General: patient oriented x3 Assessment & Plan Assessment & Plan (1) Hernia, umbilical: Code(s): K42.9 - Umbilical hernia without obstruction or gangrene Category: Medical Plan: He had a CAT scan in November showing this fat containing umbilical hernia. He had pain and tenderness at that time but the hernia apparently had reduced He had noticed this to be again bigger this morning. I was able to reduce this here in the office. He denies any suggestion of any bowel involvement. He denies any vomiting or nausea. He does admit that his hernia keeps popping out with pain and discomfort so I told him that we can do his umbilical hernia repair if he has cleared by his pants presser. He says that he was told to stay on his Eliquis for at least 2 months we can have the surgery He does have a follow up with him tomorrow. I told him that he can call them or see them tomorrow to see when he can have the surgery at the earliest so we can proceed with the repair. He will let me know once he is cleared He understands the risk of having bowel involvement of the hernia and I told him that he will have severe pain and vomiting with this. He understands that if there is bowel incarceration, the repair may become an emergency and he has to go to the emergency room. He understands the technique of repair of the umbilical hernia with possible mesh. He is aware of the risks, benefits, and alternatives. He understands that he will need to stop his Eliquis for at least 2 doses prior to the surgery. He will schedule this as soon as his pants presser this tells him he is safe to hold his anticoagulation. Medications: New tramadol 50 mg PO TID PRN 20 tabs 0RF pain Coding Level of Care Code New Pt Level 3 (17400) Diagnoses Hernia, umbilical K42.9
[2025-02-13 10:57] VITALS: BP 149/80; PULSE 61; BMI 33.5
--- OUTSIDE RECORDS SUMMARY | 2025-02-13 11:33 | XMS_ITS | Encounter Summary ---
Author Organization [facility] Address [address] [place] [address] Phone Care Team Providers Care Doctor Of Medicine Name Role Phone Wilmer Menendez MD Primary Care Provider Booker Medina MD Unavailable [phone] Encounter Details Date Type Department Care Team (Late st Contact Info) Description 12/14/2019 Procedure Pass [facility] PERIOPERATIVE DEPT [address] [place] [id number] Social History Tobacco Use Types Packs/Day Years Used Date Smoking Tobacco: Never Smokeless Tobacco: Never Alcohol Use Standard Drinks/Week Comments Yes 6 (1 standard drink = 0.6 oz pur e alcohol) Sex and Gender Information Value Date Recorded Sex Assigned at Male 12/07/2019 4:21 PM EST Legal Sex Male 11:14 AM EST Gender Identity Male 12/07/2019 4:21 PM EST Sexual Orientation Straight 12/07/2019 4: 21 PM EST documented as of this encounter Plan of Treatment Not on file documented as of this encounter Visit Diagnoses Not on filedocumented in this encounter Care Teams Doctor Of Medicine Relationship Specialty Start Date End Date Wilmer Menendez MD [address] [place] [phone] PCP - General Internal Medicine 11/02/19 Booker Medina MD [address] [place] [phone] (work) [email or web address] V[place] Surgery 12/02/19 documented as of this encounter Additional Source Comments The information contained in this document represents components of the legal health record. It is not the complete legal health record.[facility]
--- OUTSIDE RECORDS SUMMARY | 2025-02-13 11:33 | XMS_ITS | Clinical Summary ---
Author Organization [facility] Address [address] [place] [phone] Phone Care Team Providers Care Telecasting Technician Name Role Phone Wilmer Menendez MD Primary Care Provider Booker Medina MD Unavailable [phone] Allergies No known active allergies Medications levothyroxine (SYNTHROID, LEVOTHROID) 200 MCG tablet Take [...] TSH LEVEL 1952 DEPRESSION SCREENING 1964 HEPATITIS C SCREENING 1970 COLOGUARD 1997 COLONOSCOPY 1997 COLORECTAL CANCER SCREENING 1997 FIT TEST 1997 FOBT 1997 SIGMOIDOSCOPY 1997 VIRTUAL COLONOSCOPY 1997 CREATININE LEVEL 12/14/2020 12/15/2019, 11/30/2019 Adult Td,Tdap Booster 12/16/2021 12/17/2011 , 08/26/2002 COVID-19 VACCINE (2 - 2023-2 5 season) 2024 12/16/2020 RSV VACCINE (1 - 1-dose 75+ series) 2027 PNEUMOCOCCAL VACCINES (50+ years) Completed 07/15/2018, 06/02/2017 SMOKING STATUS SCREENING (On ce After 26 Yrs) Completed 12/14/2019 ZOSTER VACCINES [...] this topic Medical Devices Implanted Type Area Hop Grower Device Identifier Shelf Expiration Date Model / Serial / Lot Knee Knee Patella 38x9.5mm Persona All Polyethylene Cemented Conventional - [id number] Implanted:Qty: 1 on 12/14/2019 by Sidney Shah MD at [facility] Right: Patella [employer]HAN / DIV OF [employer] 02/01/2026 [id number] / / [id number] Knee Insert 10mm Component Articulate Surface Persona Polyethylene Cruciate Retaining Fixed Conventional Right - [id number] Implanted:Qty: 1 on 12/14/2019 by Sidney Shah MD at [facility] Right: Knee FARHAN / DIV OF [employer] 07/04/2027 [id number] / / [id number] Knee Implant 5.0deg Component Tibial Persona Titanium Stemmed Cemented Rt Size H - [id number] Implanted:Qty: 1 on 12/14/2019 by Sidney Shah MD at [facility] Right: Knee [employer]HAN / DIV OF [employer] SQUS[employer]vAxis 03/04/2029 [id number] / / [id number] Knee Implant Component Size 12 Femoral Persona Redkey Cement Cruciate Retaining Standard Right - [id number] Implanted:Qty: 1 on 12/14/2019 by Sidney Shah MD at [facility] Right: Knee FARHAN / DIV OF [employer] SQUS[employer]vAxis 05/04/2029 [id number] / / [id number] Cement Bone Palacos R High Viscosity 1x40g Cs/20ea - [id number] Implanted:Qty: 2 on 12/14/2019 by Sidney Shah MD at [facility] Right: Knee [employer] [id number] / / Procedures Procedure Name Priority Date/Time Associated Diagnosis Comments BASIC METABOLIC PANEL Routine 12/15/2019 2:18 AM EDT from Last 3 Months or Most Recently Relevant to Health Maintenance Results * (ABNORMAL) Basic metabolic panel (12/15/2019 2:18 AM EDT) SODIUM 139 135 - 145 mmol/L [facility] POTASSIUM 4.4 3.4 - 5.0 mmol/L [facility] CHLORIDE 101 98 - 108 mmol/L [facility] CO2 25 23 - 32 mmol/L [facility] BUN 11 8 - 25 mg/dL [facility] CREATININE 0.75 0.60 - 1.50 mg/dL [facility] GLUCOSE 143(H) 70 - 110 mg/dL [facility] CALCIUM 9.0 8.5 - 10.5 mg/dL [facility] EGFR 95 >59 mL/min/1. 73m2 [facility] Comment:If patient is black, multiply result by 1.159. Estimated glomerular filtration rate calculated using the CKD-EPI equation. ANION GAP 13 3 - 17 mmol/L [facility] Blood 12/15/2019 2:18 AM EDT 12/15/2019 2:21 AM EDT us Evan Lara MD LAB BLOOD ORDERABLES Final R esult [address] [phone] from Last 3 Months or Most Recently Relevant to Health Maintenance Insurance [facility] [address] [address] [place] [address] [place] [address] [place] [address] [place] [address] [place] [address] [place] [address] [facility] Advance Directives For more information, please contact: [phone] (9AM - 5PM [facility], Thursday-Thursday) * Full Code (Presumed) (Latest Code Status on File) Date Activated Date Inactivated Comments 12/14/2019 5:42 PM 12/15/2019 8:17 PM * Full Code (Presumed) Date Activated Date Inactivated Comments 12/14/2019 11:08 AM 12/14/2019 5:42 PM * Full Code (Presumed) Date Activated Date Inactivated Comments 12/14/2019 11:08 AM 12/14/2019 11:08 AM Care Teams Telecasting Technician Relationship Specialty Start Date End Date Wilmer Menendez MD [address] [place] [phone] PCP - General Internal Medicine 11/02/19 Booker Medina MD [address] [place] [phone] [email or web address] [place] Surgery 12/02/19 Additional Source Comments The information contained in this document represents components of the legal health record. It is not the complete legal health record.[facility]
--- OUTSIDE RECORDS SUMMARY | 2025-02-13 11:33 | XMS_ITS | Clinical Summary ---
Author Organization [facility] Address [address] [place] [address] Phone Care Team Providers Care Mechanical Systems Engineer Name Role Phone Wilmer Menendez MD Primary Care Provider [phone] Allergies No known active allergies Medications levothyroxine (SYNTHROID, LEVOTHROID) 175 mcg tablet Take 1 tablet (175 mcg total) by mouth 1 (one) time each day before breakfast. Active apixaban (ELIQUIS) 5 mg tablet Take 1 tablet (5 mg total) by mouth 2 (two) times a day. Active metoprolol tartrate (LOPRESSOR) 25 mg tablet Take 1 tablet (25 mg total) by mouth 2 (two) times a day. Active zinc gluconate 50 mg tablet Take 1 tablet (50 mg total) by mouth 1 (one) time each day. Active magnesium chloride (MAGDELAY) 70 mg CR tablet Take 1 tablet (70 mg total) by mouth 1 (one) time each day. Do not crush, chew, or split. Active cholecalciferol (VITAMIN D-3) 10 mcg (400 unit) tablet Take 1 tablet (400 Units total) by mouth 1 (one) time each day. Active colchicine (COLCRYS) 0.6 mg tablet Take 1 tablet (0.6 mg total) by mouth 2 (two) times a day. 180 each 01/17/2025 Active Active Problems Problem Noted Date Diagnosed Date Chest pain 12/08/2024 Deep venous thrombosis (CMS/HCC V24, CMS/HCC V28 ) 12/08/2024 New onset atrial flutter (CMS/HCC V24, CMS/HCC V 28) 12/08/2024 Assessment & Plan (12/12/2024 9:47 AM EDT): Orders: Ambulatory referral to Cardiology ECG 12 lead Cardioversion external; Future Encounters Date Type Department Care Team Description 01/17/2025 Telephone [facility] Cardiology [facility] [address] [place] [address] Bety Umaña [place] Shortness of Breath 12/16/2024 Telephone [facility] Cardiology [facility] [address] [place] [address] Sofi Gardner MD Procedure (Aflutter Ablation 4.14.25) 12/14/2024 Telephone [facility] Cardiology [facility] [address] [place] [address] Devyn Omer MD Procedure (Cardioversion ) 12/12/2024 8:20 AM EDT Office Visit [facility] Cardiology [facility] [address] [place] [address] Devyn Omer MD New onset atrial flutter (CMS/HCC V24, CMS/HCC V28) from Last 3 Months Surgical History Surgery Date Site/Laterality Comments CARDIAC CATHETERIZATION DONE ON 11/23/2024 AT [facility] WITH DR. SAMSON HUGHES INDICATIONS:UNSTABLE ANGINA , ABNORMAL STRESS TEST ABLATION DONE [place] 01/16/2025 [place] [facility] Medical History Medical History Date Comments Hypothyroid Social History Tobacco Use Types Packs/Day Years Used Date Smoking Tobacco: Former Cigarettes Smokeless Tobacco: Never Tobacco Cessation:Counseling Given: Not Answered Alcohol Use Standard Drinks/Week Comments Yes 0 (1 standard drink = 0.6 oz pur e alcohol) Sex and Gender Information Value Date Recorded Sex Assigned at Not on file Legal Sex Male 12:26 PM EST Gender Identity Not on file Sexual Orientation Not on file Obstetrics History Last Filed Vital Signs Vital Sign Reading Time Taken Comments Blood Pressure 114/62 12/12/2024 8:16 AM EDT Pulse - - Temperature - - Respiratory Rate - - Oxygen Saturation 99% 12/12/2024 8:16 AM EDT Inhaled Oxygen Concentration - - Weight - - Height 185.4 cm (6' 1 ) 12/12/2024 8:16 AM EDT Body Mass Index - - Plan of Treatment Upcoming Encounters Date Type Department Care Team (Late st Contact Info) Description 02/14/2025 2:40 PM EDT Office Visit [facility] [address] [place] [address] Kasie Sanches PA [address] [place] [address] 03/31/2025 9:20 AM EDT Office Visit [facility] Cardiology [facility] [address] [place] [address] Devyn Omer MD [address] [place] [address] Health Maintenance Due Date Last Done Comments COVID-19 Vaccine ( season) 2024 07/09/2023, 07/01/2022, 07/10/2021, Additional history exists Abdominal Aortic Aneurysm (AAA) Screen 11/19/2024 Cholesterol Screening (Lipid Panel) 11/19/2024 Colorectal Cancer Screening: Colonoscopy 11/19/2024 Depression Screening 11/19/2024 Falls Risk Assessment 11/19/2024 Hepatitis C Screening 11/19/2024 Social Influencers of Health Screening 11/19/2024 Influenza Vaccine (Season Ended) 2025 07/09/2023, 07/01/2022, 07/10/2021, Additional history exists Hypertension/CHF/CAD Annual BMP Blood Test 11/20/2025 11/20/2024, 11/20/2024, 11/19/2024 DTaP,Tdap,and Td Vaccines (4 - Td or Tdap) 06/27/2032 06/27/2022, 12/17/2011, 08/26/2002 Zoster Vaccines Completed 03/19/2020, 11/30/2019 Pneumococcal Vaccine: 50+ Years Completed 07/22/2023, 07/15/2018, 06/02/2017 RSV Immunization Adult Patients Completed 07/22/2023 HIB Vaccines Aged Out No longer eligi ble based on patient's age to complete this topic HPV Vaccines Aged Out No longer eligi ble based on patient's age to complete this topic Hepatitis A Vaccines Aged Out No long er eligible based on patient's age to complete this topic Hepatitis B Vaccines Aged Out No long er eligible based on patient's age to complete this topic IPV Vaccines Aged Out No longer eligi ble based on patient's age to complete this topic MMR Vaccines Aged Out No longer eligi ble based on patient's age to complete this topic Meningococcal ACWY Vaccine Aged Out N o longer eligible based on patient's age to complete this topic Meningococcal B Vaccine Aged Out No l onger eligible based on patient's age to complete this topic RSV Immunization Patients Under 20 months Aged Out No longer eligible based on patient's age to complete this topic Varicella Vaccines Aged Out No longer eligible based on patient's age to complete this topic Procedures Procedure Name Priority Date/Time Associated Diagnosis Comments EXTERNAL CLINICAL LAB Routine 01/17/2025 1:56 PM EDT EXTERNAL CLINICAL LAB Routine 01/10/2025 9:13 AM EDT ECG 12-LEAD Routine 12/12/2024 8:53 AM EDT New onset atrial flutter (CMS/HCC V24, CMS/HCC V28) from Last 3 Months Results * External clinical lab (01/17/2025 1:56 PM EDT) Only the most recent of2 resultswithin the time period is included. us Historical Provider LAB BLOOD ORDERABLES Reba l Result * ECG 12 lead (12/12/2024 8:53 AM EDT) Ventricular Rate ECG 70 BPM GEMUSE Atrial Rate 264 BPM GEMUSE QRS Duration 92 ms GEMUSE Q-T Interval 392 ms GEMUSE QTc 423 ms GEMUSE P Wave [place] 90 degrees GEMUSE R [place] 36 degrees GEMUSE T [place] 51 degrees GEMUSE ECG Interpretation Atrial flutter with variable A-V block Abnormal ECG No previous ECGs available Confirmed by Hodan OMER, DEVYN ([id number]) on 12/12/2024 9:15:07 AM GEMUSE 12/12/2024 8:53 AM EDT 12/12/2024 9:15 AM EDT us Devyn Omer MD ECG ORDERABLES Final Result GEMUSE from Last 3 Months Insurance [employer] Care Teams Mechanical Systems Engineer Relationship Specialty Start Date End Date Wilmer Menendez MD [address] [place] [phone] PCP - General Internal Medicine 04/01/17
--- OUTSIDE RECORDS SUMMARY | 2025-02-13 11:33 | XMS_ITS | Encounter Summary ---
Author Organization [facility] Address [address] [place] [address] Phone Care Team Providers Care Disciplinary Hearing Officer Name Role Phone Wilmer Menendez MD Primary Care Provider Booker Medina MD Unavailable [phone] Encounter Details Date Type Department Care Team (Late st Contact Info) Description 11/30/2019 Prep for Surgery Sidney Shah MD [address] [facility] [address] [place] [address] Order Mode, Waiter/Waitress [address] [place] [address] Social History Tobacco Use Types Packs/Day Years [...] on filedocumented in this encounter Care Teams Disciplinary Hearing Officer Relationship Specialty Start Date End Date Wilmer Menendez MD [address] [place] [phone] PCP - General Internal Medicine 11/02/19 Booker Medina MD [address] [place] [phone] [email or web address] Vascular Surgery 12/02/19 documented as of this encounter Additional Source Comments The information contained in this document represents components of the legal health record. It is not the complete legal health record.[facility]
== END 2025-02-13 11:15 | disposition home or self-care (01) ==
PROVIDERS: PCP Internal Medicine; Visit Provider Surgery
DX: K42.9 Umbilical hernia without obstruction or gangrene (principal)
CPT/HCPCS: 99213

== ENCOUNTER 2025-02-28 09:52 | Day surgery (SDC) | payer OTHER, MEDICARE, SELFPAY ==
--- OUTSIDE RECORDS SUMMARY | 2025-02-15 14:21 | XMS_ITS | Encounter Summary ---
Author Organization [facility] Address [address] [place] [address] Care Team Providers Care Boot Trimmer Name Role Phone Wilmer Menendez MD Primary Care Provider [phone] Reason for Referral * Cardiac Stress Testing (Routine) - Authorized Specialty Diagnoses / Procedures Referred By Dakota ramirez Referred To Contact Cardiology Diagnoses New onset atrial flutter (CMS/HCC V24, CMS/HCC V28) Procedures Cardiac event monitor CT EXTERNAL PATIENT ACTIVATED ECG DOWNLOAD W RESULTS & INTERP <= [address] EXTERNAL PAT AUTO ACTIVATED ECG INCLUDING TRANSMISSION UP TO [address] EXTERNAL MOBILE CV TELEMETRY W ECG RECORDING <=30D PHYSCIAN REV & INTERP CT EXTERNAL MOBILE CV TELEMETRY W ECG RECORDING TECH SUPPORT UP TO [address] ECG UP TO 30 DAYS RECORDING Kasie Sanches PA [address] [place] [address] Phone: tel: fax: Referral ID Status Reason Start Date Expiration Date V isits Requested Visits Authorized [id number] Authorized 02/14/2025 02/14/2026 1 1 Reason for Visit * Reason Comments Hospital Follow-up Encounter Details Date Type Department Care Team (Late st Contact Info) Description 02/14/2025 2:40 PM EDT Office Visit [facility] - [address] [place] [address] Kasie Sanches PA [address] [place] [address] New onset atrial flutter (CMS/HCC V24, CMS/HCC V28) (Primary Dx); Chest pain, unspecified type; Pericarditis, unspecified chronicity, unspecified type Social History Tobacco Use Types Packs/Day Years Used Date Smoking Tobacco: Former Cigarettes Smokeless Tobacco: Never Alcohol Use Standard Drinks/Week Comments Yes 0 (1 standard drink = 0.6 oz pur e alcohol) Sex and Gender Information Value Date Recorded Sex Assigned at Not on file Legal Sex Male 12:26 PM EST Gender Identity Not on file Sexual Orientation Not on file documented as of this encounter Last Filed Vital Signs Vital Sign Reading Time Taken Comments Blood Pressure 102/70 02/14/2025 2:23 PM EDT Pulse 60 02/14/2025 2:23 PM EDT Temperature - - Respiratory Rate - - Oxygen Saturation 99% 02/14/2025 2:23 PM EDT Inhaled Oxygen Concentration - - Weight 113 kg (250 lb) 02/14/2025 2:23 PM EDT Height 185.4 cm (6' 0.99 ) 02/14/2025 2:23 PM ED T Body Mass Index 32.99 02/14/2025 2:23 PM EDT documented in this encounter Progress Notes * MASON Lanza - 02/14/2025 2:40 PM EDT Please call with any questions or concerns Kasie CUEVAS-C [phone] [facility] [address] [place] [address] You can go ahead and schedule hernia repair hold eliquis 2 days prior , day off procedure , then resume the day after Stop colchicine and metoprolol ( dont throw away ) Wear apple watch 24/7 charge during day to see if any high HR while Plan for 14 days roct in 6 weeks with follow up after documented in this encounter Plan of Treatment Upcoming Encounters Date Type Department Care Team (Late st Contact Info) Description 03/31/2025 9:20 AM EDT Office Visit [facility] - [address] [place] [address] Bro Omer MD [address] [place] [address] Scheduled Orders Name Type Priority Associated Diagnoses Orde r Schedule Cardiac event monitor Cardiac Services Routine New onset atrial flutter (CMS/HCC V24, CMS/HCC V28) Expected: 03/20/2025, Expires: 02/14/2026 documented as of this encounter Procedures Procedure Name Priority Date/Time Associated Diagnosis Comments ECG 12-LEAD Routine 02/14/2025 3:55 PM EDT New onset atrial flutter (CMS/HCC V24, CMS/HCC V28) documented in this encounter Results * ECG 12 lead (02/14/2025 3:55 PM EDT) Ventricular Rate ECG 60 BPM GEMUSE Atrial Rate 60 BPM GEMUSE P-R Interval 234 ms GEMUSE QRS Duration 94 ms GEMUSE Q-T Interval 416 ms GEMUSE QTc 416 ms GEMUSE P Wave [place] 28 degrees GEMUSE T [place] 45 degrees GEMUSE ECG Interpretation Sinus rhythm with 1st degree A-V block Otherwise normal ECG When compared with ECG of 12-DEC-2024 08:53, Sinus rhythm has replaced Atrial flutter ST no longer elevated in Inferior leads GEMUSE 02/14/2025 2:35 PM EDT us Kasie CUEVAS ECG ORDERABLES Final Result GEMUSE documented in this encounter Visit Diagnoses Diagnosis New onset atrial flutter (CMS/HCC V24, CMS/HCC V28)- Primary Chest pain, unspecified type Pericarditis, unspecified chronicity, unspecified type documented in this encounter Discontinued Medications Medication Sig Discontinue Reason Start Date End Da te colchicine (COLCRYS) 0.6 mg tablet Take 1 tablet (0.6 mg total) by mouth 2 (two) times a day. Therapy completed 01/17/2025 02/14/2025 metoprolol tartrate (LOPRESSOR) 25 mg tablet Take 0.5 tablets (12.5 mg total) by mouth 2 (two) times a day. Therapy completed 02/14/2025 documented as of this encounter Care Teams Boot Trimmer Relationship Specialty Start Date End Date Wilmer Menendez MD [address] [place] [address] PCP - General Internal Medicine 04/01/17 documented as of this encounter
--- OUTSIDE RECORDS SUMMARY | 2025-02-15 14:21 | XMS_ITS | Clinical Summary ---
Author Organization [facility] Address [address] [facility] [place] [address] Care Team Providers Care Cream Cheese Maker Name Role Phone Unavailable Primary Care Provider [...] Adults 18 yrs or above (or HM Modifier)([facility]) 1952 Hepatitis C Virus Infection in Adolescents and Adults: Screening (or Modifier) ([facility]) [address] [facility] Screening Reminder: Shelly dooley for all adults ([facility]) 1970 Tobacco Smoking Cessation: i n Adults excluding Women: Behavioral and Pharmacotherapy Interventions ([facility]) 1970 DTaP/Tdap/Td Vaccines ([facility]) (1 - Tdap) 1971 Lipid Screening: Every 5 yrs for Men aged 35+ (or HM Modifier) ([facility]) 1988 Colorectal Cancer Screening 45 -75 Yrs (or HM Modifier ) 1997 Colorectal Cancer: FLEXIBLE SIGMOIDOSCOPY Screening every 5 yrs 1997 Colorectal Cancer: Fecal Imm unochemical Test (FIT) Annually [facility] 1997 Colorectal Cancer: High-sens itivity gFOBT Screening Annually [facility] 1997 Colorectal Cancer: Stool Col oguard Screening every 3 yrs 1997 Colorectal Cancer:CT Colonography Screening every 5 yr s 1997 Pneumococcal Vaccination Scr eening: Patients 50+ yrs of age ([facility]) (1 of 1 - PCV) 2002 Zoster/Shingles Vaccine Seri es Screening: Adults aged 18+ yrs (or HM Modifiers)([facility]) (1 of 2) 2002 COVID-19 Vaccine Screening: Initial Series and Booster Status ([facility]) ( - 2023- season) 2024 Flu Vaccination: Ages 65+: Y early High Dose Recommended (or Modifier)([facility]) 05/05/2025 RSV Vaccines (1 - 1-dose 75+ series) 2027 [employer] Not on file Insurance [facility]
--- OUTSIDE RECORDS SUMMARY | 2025-02-15 14:21 | XMS_ITS | Encounter Summary ---
Author Organization [facility] Address [address] [place] [address] Care Team Providers Care Telecom Sales Consultant Name Role Phone Wilmer Menendez MD Primary Care Provider [phone] Reason for Visit * Reason Onset Date Comments [id number] (ok to book) 02/15/2025 Encounter Details Date Type Department Care Team (Late st Contact Info) Description 02/15/2025 Telephone [facility] - [facility] [address] [facility] [address] [place] [address] Sofi Gardner MD [address] [facility] [address] [place] [address] [id number] (ok to book) Social History Tobacco Use Types Packs/Day Years [...] on file documented as of this encounter Progress Notes * Darrick Cornejo MA - 02/15/2025 2:17 PM EDT Tentative Date: to be enrolled for 14 day ROCt ordered by ZEYAD Riley// to read Dx: A-Flutter- on AC * Polly Solorzano - 02/15/2025 8:54 AM EDT Prior Auth Status: NO Auth Req per [employer] Insurance Referral: n/a CPT: 69034 - ROCT DX: I48.92 Duration: 14 Days Eckley: Jj SCHMID to BOOK documented in this encounter Plan of Treatment Upcoming Encounters Date Type Department Care Team (Late st Contact Info) Description 03/31/2025 9:20 AM EDT Office Visit [facility] - [facility] [address] [facility] [address] [place] [address] Bro Omer MD [address] [facility] [address] [place] [address] documented as of this encounter Visit Diagnoses Not on filedocumented in this encounter Care Teams Telecom Sales Consultant Relationship Specialty Start Date End Date Wilmer Menendez MD [address] [place] [phone] PCP - General Internal Medicine 04/01/17 documented as of this encounter
--- OUTSIDE RECORDS SUMMARY | 2025-02-15 14:21 | XMS_ITS | Encounter Summary ---
Author Organization [facility] Address [address] [place] [address] Care Team Providers Care Chemist Helper Name Role Phone Wilmer Menendez MD Primary Care Provider [phone] Reason for Visit * Reason Onset Date Comments Hernia 02/13/2025 Encounter Details Date Type Department Care Team (Late st Contact Info) Description 02/13/2025 Telephone [facility] - [facility] [address] [facility] [address] [place] [address] Kasie Sanches PA [address] [place] [address] Hernia Social History Tobacco Use Types Packs/Day Years [...] as of this encounter Progress Notes * Jose Antonio Naidu MA - 02/13/2025 4:16 PM EDT Received paperwork from requesting office, this was given to the medical front desk specialist that will be working with Kasie Sanches PA-C tomorrow. * Allyson Daniel MA - 02/13/2025 3:21 PM EDT Patient made aware . He will keep his appt * Allyson Daniel MA - 02/13/2025 3:17 PM EDT Call dropped when he called back * Allyson Daniel MA - 02/13/2025 3:13 PM EDT Left detailed message for patient * MASON Lanza - 02/13/2025 2:20 PM EDT Please let him know we will discuss at his follow-up tomorrow-he has to remain anticoagulated 2 months post ablation till March 18 uninterrupted unless there is an emergency * Radha Abad - 02/13/2025 1:10 PM EDT Patient is calling in regards to an umbilical hernia, he was instructed to wait 3 months after his ablation on 01/16/25 to have surgery for it. He would like to confirm if he is to wait or if he may proceed with the surgery as he has been in emergency room on multiple occasions for it. Please returnhis call at [phone] to discuss. documented in this encounter Plan of Treatment Upcoming Encounters Date Type Department Care Team (Late st Contact Info) Description 03/31/2025 9:20 AM EDT Office Visit [facility] - [address] [facility] [address] [place] [phone] Bro Omer MD [address] [facility] [address] [place] [address] documented as of this encounter Visit Diagnoses Not on filedocumented in this encounter Care Teams Chemist Helper Relationship Specialty Start Date End Date Wilmer Menendez MD [address] [place] [phone] PCP - General Internal Medicine 04/01/17 documented as of this encounter
--- OUTSIDE RECORDS SUMMARY | 2025-02-15 14:21 | XMS_ITS | Encounter Summary ---
Author Organization [facility] Address [address] [place] [address] Care Team Providers Care Appliance Adjuster Name Role Phone Wilmer Menendez MD Primary Care Provider [phone] Reason for Visit * Reason Onset Date Comments Records 02/14/2025 Encounter Details Date Type Department Care Team (Late st Contact Info) Description 02/14/[address] [facility] - [facility] [address] [facility] [address] [place] [address] Kasie Sanches PA [address] [place] [address] Records Social History Tobacco Use Types Packs/Day Years [...] as of this encounter Progress Notes * Radha Abad - 02/14/2025 3:55 PM EDT Patient is calling after his office visit with Kasie Sanches today, he is requesting we can obtain hisultrasound results from November at [place], [place]. He sates it is necessary for scheduling a procedure. documented in this encounter Plan of Treatment Upcoming Encounters Date Type Department Care Team (Late st Contact Info) Description 03/31/2025 9:20 AM EDT Office Visit [facility] - [facility] [address] [facility] [address] [place] [address] Bro Omer MD [address] [facility] [address] [place] [address] documented as of this encounter Visit Diagnoses Not on filedocumented in this encounter Care Teams Appliance Adjuster Relationship Specialty Start Date End Date Wilmer Menendez MD [address] [place] [phone] PCP - General Internal Medicine 04/01/17 documented as of this encounter
--- OUTSIDE RECORDS SUMMARY | 2025-02-15 14:21 | XMS_ITS | Encounter Summary ---
Author Organization [facility] Address [address] [place] [address] Care Team Providers Care Pantograph I Engraver Name Role Phone Wilmer Menendez MD Primary Care Provider [phone] Encounter Details Date Type Department Care Team (Late Contact Info) Description 02/14/2025 Telephone [facility] - [facility] [address] [facility] [address] [place] [address] Kasie Sanches PA [address] [place] [facility] [address] [place] [address] Social History Tobacco Use Types Packs/Day Years [...] as of this encounter Progress Notes * MASON Lanza - 02/14/2025 3:21 PM EDT Plse call PCP - pt had DVT nov 19, 2024 and recent flutter ablation - need documented in this encounter Plan of Treatment Upcoming Encounters Date Type Department Care Team (Late Contact Info) Description 03/31/2025 9:20 AM EDT Office Visit [facility] - [facility] [address] [facility] [address] [place] [address] Bro Omer MD [address] [facility] [address] [place] [address] documented as of this encounter Visit Diagnoses Not on filedocumented in this encounter Care Teams Pantograph I Engraver Relationship Specialty Start Date End Date Wilmer Menendez MD [address] [place] [address] PCP - General Internal Medicine 04/01/17 documented as of this encounter
--- OUTSIDE RECORDS SUMMARY | 2025-02-15 14:21 | XMS_ITS | Encounter Summary ---
Author Organization [facility] Address [address] [place] [address] Care Team Providers Care Buff Wheel Fabricator Name Role Phone Wilmer Menendez MD Primary Care Provider [phone] Reason for Visit * Reason Onset Date Comments Pre-operative Clearance 02/15/2025 Encounter Details Date Type Department Care Team (Late st Contact Info) Description 02/15/2025 Telephone [facility] - [facility] [address] [facility] [address] [place] [address] Kasie Sanches PA [address] [place], [place] [phone] Pre-operative Clearance Social History Tobacco Use Types Packs/Day Years [...] as of this encounter Progress Notes * Roopa Lind RN - 02/15/2025 12:17 PM EDT I faxed as well as spoke with Roopa at surgical office. * MASON Lanza - 02/15/2025 11:57 AM EDT Adelaide took care of this yesterday faxed my note to that office and follow-up call confirm that theyhad received it * Roopa Lind RN - 02/15/2025 11:52 AM EDT Spoke with Roopa at [facility] stating I already faxed note to below fax Number and I was told that fax number ifs fine. I reviewed office note as well with her. She thanked me for the call. * Roopa Lind RN - 02/15/2025 11:48 AM EDT Office visit note faxed to the above doctor and fax number as the office note contains the information regarding surgery and information that was requested. * Kaylyn Mcnally - 02/15/2025 11:45 AM EDT Roopa called from [facility] having umbilical hernia repair Medical Records Request Caller: Roopa -- [facility] Calling from: [facility] Requesting provider's first & last name:Dr. Denia Acevedo Direct Phone Number or Ext: [phone] What records are being requested: DOS with Kasie How far back: What is it for: Pre-0op clearance Needed by: AIDEN * Ronnie Medina - 02/15/2025 10:10 AM EDT Patient called today to request cardiac clearance ahead of umbilical hernia surgery @ [facility] with Dr Denia Acevedo date TBD. He was seen yesterday 02/14/25 with Kasie could this visit be used for cardiac clearance? Please fax clearance to [phone]. documented in this encounter Plan of Treatment Upcoming Encounters Date Type Department Care Team (Late st Contact Info) Description 03/31/2025 9:20 AM EDT Office Visit [facility] - [address] [facility] [address] [place] [address] Bro Omer MD [address] [place] [address] documented as of this encounter Visit Diagnoses Not on filedocumented in this encounter Care Teams Buff Wheel Fabricator Relationship Specialty Start Date End Date Wilmer Menendez MD [address] [place] [address] PCP - General Internal Medicine 04/01/17 documented as of this encounter
[2025-02-28] VITALS (7 sets, daily range): BP systolic 123–148; BP diastolic 76–92; PULSE 70–80; RESP 14–16; TEMP 36.4–37.1; O2SAT 96–98; BMI 33.5
[2025-02-28] MEDS: Lactated Ringers 1,000 ML 80 ML IVCONT (10:54)
--- NOTE | 2025-02-28 12:04 | MHC.SHP ---
Pre-Procedural Eval Section A - 24 Hr Update-Section A only Date of Service: 02/28/25 The patient is an INPATIENT: No Changes since office visit: No Cold of Flu in the past 2 weeks, No New Medical Problems, No Changes in Medication and No Patient answered all questions The patient has been examined within 24 hours of the surgical procedure. The History & Physical has been completed within 30 days and I have reviewed it.: Yes Section B - Complete if H&P > 30 days Chief Complaint: Umbilical hernia without obstruction or gangrene Allergies: Allergies Allergy/AdvReac Type Severity Reaction Status Date / Time No Known Allergies Allergy Verified 02/13/25 10:56 Plan I have reviewed the history and physical and performed a pertinent physical examination on my patient. No changes have occurred unless specified. Time Spent With Patient Time: Total time managing care of this patient today ____ minutes.
--- NOTE | 2025-02-28 12:27 | P.CONAN_ITS ---
HPI - Anesthesia Eval Consult details Narrative: 74 yo M presenting for umbilical hernia repair. [facility] Past Medical History Medical History (Updated 02/24/25 @ 10:11 by Crystal Nicholas, RN) Sleep apnea Overweight Obesity, Class I, BMI 30.0-34.9 (see actual BMI) Hypothyroidism History of DVT in adulthood Family history of colon cancer Encounter for screening colonoscopy Family History Family History Other Colon cancer Family history of problems with anesthesia: No Surgical History Surgical History (Updated 02/24/25 @ 10:10 by Crystal Nicholas, RN) History of cardiac ablation for atrial fibrillation H/O colonoscopy (~2005) History of total knee replacement History of vein stripping Hx of surgical procedure History of colonoscopy with polypectomy (~06/26/16) History of Problems with Anesthesia: No Social History Social History Are you a primary primary health care nurse to a significant other at home: No Do you presently have visiting nurse or other home services: No Alcohol intake: never Patient Tobacco Use Status: Former Tobacco user Use of substances other than those prescribed or required for medical reasons: No Have you been hit, kicked, punched, or otherwise hurt by someone within the past year? If so, by whom?: No Are you DNR?: No Advance Directives: No Advance Directives Information Provided: Yes Poor oral hygiene: No Meds Allergies Allergy/AdvReac Type Severity Reaction Status Date / Time No Known Allergies Allergy Verified 02/13/25 10:56 Active Medications: Current Medications Lactated Ringer's (Lr) 1,000 mls @ 80 mls/hr IVCONT .[id number] [facility] Last Admin: 02/28/25 10:54 Dose: 80 mls/hr Home Medications ?Medication ?Instructions ?Recorded ?Confirmed ?Last Taken ?Type apixaban 5 mg tablet (Eliquis) 5 mg PO BID 02/13/25 02/28/25 02/25/25 History colchicine 0.6 mg tablet 0.6 mg PO BID 02/13/25 02/28/25 Unknown History levothyroxine 175 mcg tablet 175 mcg PO DAILY 02/13/25 02/28/25 02/28/25 History (Synthroid) metoprolol tartrate 25 mg tablet 25 mg PO DAILY 02/13/25 02/28/25 Unknown History Exam Exam Date and Time: 02/28/25 1225 Height,Weight and Vital Signs: Height 6 ft Weight 112 kg Last Vital Signs Temp 97.8 F 02/28/25 10:32 Pulse 80 02/28/25 10:32 Resp 14 02/28/25 10:32 BP 145/86 H 02/28/25 10:32 Pulse Ox 98 02/28/25 10:32 O2 Del Method Room Air 02/28/25 10:32 Airway Mallampati Class: II TM Dist: >3cm Neck ROM: Full Loose/Missing/Broken Teeth: Yes (a few missing teeth but no loose or broken teeth) Heart: S1S2 Lungs: CTAB Assessment and Plan Assessment Anesthesia Assessment: Anesthesia Plan Discussed and Chart Reviewed Final Anesthetic Review Family History of Problems with Anesthesia: No History of Problems with Anesthesia: No NPO: Yes ASA Class: II Final Preanesthetic Review: No Changes in Pt Med Stat, Meds/Allgs Chart Reviewed, Consent Obtained/Reviewed and Anes Risks/Benef Reviewed Patient Risk: Low Procedure Risk: Low Anesthetic Plan Anesthetic Plan: GA and Agree w/ Assess. and Plan Disposition: Standard PACU
--- NOTE | 2025-02-28 13:17 | P.OP_ITS ---
Operative Note Operative Note Date of Service: 02/28/25 Narrative: Preop diagnosis: Umbilical hernia, reducible Postop diagnosis: The same Procedure: Repair of umbilical hernia with Ventralex mesh Surgeon: Nicko Acevedo MD conventions assistant: MASON Angel The patient is a 74 year-old male with a reducible umbilical hernia. He wanted to proceed with the repair in view of symptoms. He understood the technique of the planned procedure as well as the risks, benefits, and alternatives. He was brought to the operating room. He was placed supine under general anesthesia via laryngeal mask airway. The abdomen was prepped and draped in the usual sterile fashion. A surgical time-out was done. The patient received cefazolin 2 g IV preoperatively. He had been off his anticoagulant for more than 48 hours. I infiltrated the planned line of incision with lidocaine 1%. I made a transverse supraumbilical curvilinear incision with a blade 15. This was carried down through the full-thickness of the skin subcutaneous fat. I proceeded to then gently dissect the umbilicus off of the fascia as a flap using Metzenbaum scissors as well as electrocautery. By doing so, I was able to identify the hernia which contained large amounts of omental fat fat. I gently dissected the hernia off of the rest of the fascia using Metzenbaum scissors as well as electrocautery to divide all the adhesions. By doing so, I was able to completely reduce the hernia contents through the umbilical defect. Fascial defect was about 2.1 cm in diameter. The underside of the fascial defect was free of adhesions. There were no bowel loops surrounding the area. I therefore positioned a small-sized Ventralex mesh clamp under the fascial defect. I secured the Prolene straps of the mesh on both sides with Prolene 2 sutures. I then of the Prolene straps flush at the fascial level. I closed the fascial defect with a [id number] Maxon 1 stitch. We irrigated. We tacked the umbilicus down to the fascia with Polysorb 3-0 sutures to re-create the dimple. The subcutaneous layer was reapposed with Polysorb 3-0 simple interrupted sutures. Skin closure was achieved with Polysorb 4-0 subcuticular running stitch. The area was infiltrated with Marcaine 0.5% for postop analgesia. Dressings were applied. The procedure was completed. The patient tolerated the procedure well. There were no immediate complications. Initial and final counts of sponges and instruments were correct. Estimated blood loss was about 5 cc The patient was extubated without difficulty and transferred to the recovery room with stable vital signs.
[2025-02-28] MEDS: fentaNYL citrate/PF 100 MCG/2 ML VIAL 50 MCG IVPUSH (13:46)
[2025-02-28] MEDS: oxyCODONE HCl Immed Release 5 MG TABLET PO (14:00)
== END 2025-02-28 15:03 | disposition home or self-care (01) ==
PROVIDERS: PCP Internal Medicine; Visit Provider Surgery
PROC: (CPT 49591; principal; 2025-02-28 13:00)
DX: K42.9 Umbilical hernia without obstruction or gangrene (principal); K66.0 Peritoneal adhesions (postprocedural) (postinfection); I48.91 Unspecified atrial fibrillation; Z86.718 Personal history of other venous thrombosis and embolism; E03.9 Hypothyroidism, unspecified; E66.811 Obesity, class 1; Z68.33 Body mass index [BMI] 33.0-33.9, adult; Z80.0 Family history of malignant neoplasm of digestive organs; Z79.01 Long term (current) use of anticoagulants; Z98.890 Other specified postprocedural states
CPT/HCPCS: 49591; C1781; J0131; J0690; J1100; J1885; J2003; J2405; J2704; J2795; J3010

== ENCOUNTER → 2025-02-28 09:52 | Outpatient (BNV) | payer OTHER, MEDICARE, SELFPAY | PROVIDERS: PCP Internal Medicine; Visit Provider Surgery | DX: K42.9 Umbilical hernia without obstruction or gangrene (principal) | CPT/HCPCS: 49591 ==

== ENCOUNTER 2025-03-13 11:16 | Outpatient (AMB) | payer OTHER, MEDICARE, SELFPAY ==
--- NOTE | 2025-03-13 11:20 | A.OFFVIS_ITS ---
Vital Signs 03/13/25 11:33 Height 6 ft Weight 247 lb 5.738 oz BMI 33.5 Respiration 18 Pulse 72 Intake Visit Reasons: post umbilcal hernia repair Intake Note: Patient is seen in office for post op assessment post umbilical hernia repair. Pt c/o: denies any concerns at the time of visit Quality Assurance Practice Manager Required: No Accompanied by: Self / Same As Patient Allergies No Known Allergies Allergy (Verified 03/13/25 11:35) HPI HPI post umbilcal hernia repair: Details: Patient reports he is doing well. Has no pain at this time, reports some mild pain for the 1st few days postoperatively but did not feel the need to use any narcotics in his pain was well controlled with [id number] pain medications. He denies any fever, chills, chest pain, shortness of breath. He notes some bruising around the incision site that has been improving. Denies discharge from the incision site states he removed the dressing but let the Steri-Strips intact because he was unsure if he should remove them. Reports his appetite and bowel function are at baseline. He reports he has been avoiding any heavy lifting or exercise at this time. 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 He has no concerns at this time [facility] Medical History Sleep apnea Overweight Obesity, Class I, BMI 30.0-34.9 (see actual BMI) Hypothyroidism History of DVT in adulthood Family history of colon cancer Encounter for screening colonoscopy Surgical History Hx of umbilical hernia repair (02/28/25) History of cardiac ablation for atrial fibrillation H/O colonoscopy (~2005) History of total knee replacement History of vein stripping Hx of surgical procedure History of colonoscopy with polypectomy (~06/26/16) Family History Other Colon cancer Social History Are you a primary child care worker to a significant other at home: No Do you presently have visiting nurse or other home services: No Alcohol intake: never Patient Tobacco Use Status: Former Tobacco user Review of Systems Const Denies chills and Denies fever(s) GI Denies abdominal pain, Denies change in bowel habits, Denies constipation, Denies diarrhea, Denies nausea and Denies vomiting Physical Exam Vital Signs: Last Vital Signs Pulse 72 03/13/25 11:33 Resp 18 03/13/25 11:33 BMI result Body Mass Index 33.5 Const General: comfortable and no acute distress Orientation/consciousness: patient oriented x3 Resp Effort & Inspection: normal respiratory effort and able to speak in complete sentences GI Other: Incision site healing well Steri-Strips removed in office. Mild dried blood around the incision site Inspection: Yes abdominal wall ecchymosis (Surrounding incision, improving) and No distended Palpation (GI): Soft to palpation, not firm, nontender, no guarding and not rigid Neuro General: patient oriented x3 Assessment & Plan Assessment & Plan (1) S/P umbilical hernia repair, follow-up exam: Code(s): Z09 - Encounter for follow-up examination after completed treatment for conditions other than malignant neoplasm Category: Surgical Plan 74-year-old male s/p umbilical hernia repair on 02/28/[address] Acevedo presenting to the office for 2 week follow-up. Patient doing well no longer experiencing pain. Appetite and bowel function are at baseline. Abdominal exam is soft and benign incision site appears to be healing well. Steri-Strips were removed in office without complication. There was no surrounding erythema or abnormal discharge. No concern for infection at this time. Recommended keeping the incision clean and dry. Recommended no submerging in water. We will continue activity restrictions, no weight lifting greater than 15 lb. Patient is an avid walker, patient is okay to partaken light walking at this time. He will follow-up in 2 weeks for 1 month postop visit. Patient can return sooner with any concerns Coding Level of Care Code Est Pt Level 2 (72619) Diagnoses S/P umbilical hernia repair, follow-up exam Z09 Time Spent (min) 30
[2025-03-13 11:33] VITALS: PULSE 72; RESP 18; BMI 33.5
--- OUTSIDE RECORDS SUMMARY | 2025-03-13 12:54 | XMS_ITS | Clinical Summary ---
Author Organization [facility] [employer] [facility] Address [address] [facility] [employer] [address] Care Team Providers Care Ceramic Artist Name Role Phone Unavailable Primary Care Provider [...] Adults 18 yrs or above (or HM Modifier)([facility]) 1970 Hepatitis C Virus Infection in Adolescents and Adults: Screening (or Modifier) ([facility]) 1970 [facility] Screening Reminder: Shelly dooley for all adults ([facility]) 1970 Tobacco Smoking Cessation: i n Adults excluding Women: Behavioral and Pharmacotherapy Interventions ([facility]) 1970 DTaP/Tdap/Td Vaccines ([facility]) (1 - Tdap) 1971 Colorectal Cancer Screening 45 -75 Yrs (or HM Modifier ) 1997 Colorectal Cancer: FLEXIBLE SIGMOIDOSCOPY Screening every 5 yrs 1997 Colorectal Cancer: Fecal Imm unochemical Test (FIT) Annually [facility] 1997 Colorectal Cancer: High-sens itivity gFOBT Screening Annually [facility] 1997 Colorectal Cancer: Stool Col oguard Screening every 3 yrs 1997 Colorectal Cancer:CT Colonography Screening every 5 yr s 1997 Pneumococcal Vaccination Scr eening: Patients 50+ yrs of age ([facility]) (1 of 1 - PCV) 2002 Zoster/Shingles Vaccine Seri es Screening: Adults aged 18+ yrs (or HM Modifiers)([facility]) (1 of 2) 2002 COVID-19 Vaccine Screening: Initial Series and Booster Status ([facility]) (2023- season) 2024 Flu Vaccination: Ages 65+: Y early High Dose Recommended (or Modifier)([facility]) 05/05/2025 RSV Vaccines (1 - 1-dose 75+ series) 2027 Medical Devices Not on file Insurance [facility]
== END 2025-03-13 11:36 | disposition home or self-care (01) ==
LOC: HO.HGS 11:17
PROVIDERS: PCP Internal Medicine
DX: Z09 Encounter for follow-up examination after completed treatment for conditions other than malignant neoplasm (principal)
CPT/HCPCS: 99212

== ENCOUNTER 2025-03-27 11:41 | Outpatient (AMB) | payer OTHER, MEDICARE, SELFPAY ==
--- NOTE | 2025-03-27 11:42 | MHC.OFFVIS ---
Vital Signs 03/27/25 11:46 Height 6 ft Weight 251 lb BMI 34.0 BP 132/82 Blood Pressure Location Rt brachial Position Sitting Pulse 78 Intake Visit Reasons: 2wk follow up post umbilcal hernia repair Intake Note: Patient here s/p 2wk follow up post umbilical hernia repair. Reports incision healed well. Patient c/o: no concerns. Cultural Historian Required: No Accompanied by: Self / Same As Patient Allergies No Known Allergies Allergy (Verified 03/27/25 11:46) HPI HPI 2wk follow up post umbilcal hernia repair: Details: He is here for follow-up after umbilical hernia repair with mesh last month. He continues to do well. He denies any complaints. He denies any significant pain. [facility] Medical History Sleep apnea Overweight Obesity, Class I, BMI 30.0-34.9 (see actual BMI) Hypothyroidism History of DVT in adulthood Family history of colon cancer Encounter for screening colonoscopy Surgical History Hx of umbilical hernia repair (02/28/25) History of cardiac ablation for atrial fibrillation H/O colonoscopy (~2005) History of total knee replacement History of vein stripping Hx of surgical procedure History of colonoscopy with polypectomy (~06/26/16) Family History Other Colon cancer Social History Are you a primary neonatal intensive care nurse to a significant other at home: No Do you presently have visiting nurse or other home services: No Alcohol intake: never Patient Tobacco Use Status: Former Tobacco user Review of Systems Const Denies chills and Denies fever(s) Card Denies chest pain Resp Denies cough GI Denies abdominal pain Physical Exam Vital Signs: Last Vital Signs Pulse 78 03/27/25 11:46 BP 132/82 03/27/25 11:46 BMI result Body Mass Index 34.0 Const General: comfortable and no acute distress Resp Effort & Inspection: normal respiratory effort GI Other: Incision is well healed, repair intact Palpation (GI): Soft to palpation, not firm, nontender and no guarding Assessment & Plan Assessment & Plan (1) S/P umbilical hernia repair, follow-up exam: Code(s): Z09 - Encounter for follow-up examination after completed treatment for conditions other than malignant neoplasm Category: Surgical Plan: He continues to do very well. The repair site is intact. The incision is well healed. He can therefore follow up on a p.r.n. basis. Coding Level of Care Code Global (12976) Diagnoses S/P umbilical hernia repair, follow-up exam Z09
[2025-03-27 11:46] VITALS: BP 132/82; PULSE 78; BMI 34.0
--- OUTSIDE RECORDS SUMMARY | 2025-03-27 13:21 | XMS_ITS | Clinical Summary ---
Author Organization [facility] [employer] [facility] Address [address] [facility] [place] [address] Care Team Providers Care Slitter Scorer Name Role Phone Unavailable Primary Care Provider [...] Adults 18 yrs or above (or HM Modifier)([facility]) 1970 Hepatitis C Virus Infection in Adolescents and Adults: Screening (or Modifier) ([facility]) 1970 [facility] Screening Reminder: Shelly dooley for all adults ([facility]) 1970 Tobacco Smoking Cessation: i n Adults excluding Women: Behavioral and Pharmacotherapy Interventions ([facility]) 1970 DTaP/Tdap/Td Vaccines ([facility]) (1 - Tdap) 1971 Colorectal Cancer Screening 45 -75 Yrs (or HM Modifier ) 1997 Colorectal Cancer: FLEXIBLE SIGMOIDOSCOPY Screening every 5 yrs 1997 Colorectal Cancer: Fecal Imm unochemical Test (FIT) Annually [facility] 1997 Colorectal Cancer: High-sens itivity gFOBT Screening Annually [facility] 1997 Colorectal Cancer: Stool Col oguard Screening every 3 yrs 1997 Colorectal Cancer:CT Colonography Screening every 5 yr s 1997 Pneumococcal Vaccination Scr eening: Patients 50+ yrs of age ([facility]) (1 of 1 - PCV) 2002 Zoster/Shingles Vaccine Seri es Screening: Adults aged 18+ yrs (or HM Modifiers)([facility]) (1 of 2) 2002 COVID-19 Vaccine Screening: Initial Series and Booster Status ([facility]) (2023- season) 2024 Flu Vaccination: Ages 65+: Y early High Dose Recommended (or Modifier)([facility]) 05/05/2025 RSV Vaccines (1 - 1-dose 75+ series) 2027 Medical Devices Not on file Insurance [facility]
== END 2025-03-27 11:52 | disposition home or self-care (01) ==
LOC: HO.HGS 11:42
PROVIDERS: PCP Internal Medicine; Visit Provider Surgery
DX: Z09 Encounter for follow-up examination after completed treatment for conditions other than malignant neoplasm (principal)
CPT/HCPCS: 99212

== ENCOUNTER 2025-05-03 15:18 | Emergency (ER) | payer MEDICARE, BC, SELFPAY ==
--- NOTE | ~2025-05-03 | XR_ITS ---
EXAMINATION: XR FINGER, RIGHT CLINICAL INFORMATION: pain, ?osteo COMPARISON: None available. TECHNIQUE: PA, oblique and lateral views of the right third digit. FINDINGS: Soft tissue swelling/edema pattern in the distal aspect. No subcutaneous emphysema. No lytic or blastic lesions. No osteolysis. No periosteal bone reaction. No acute cortical disruption or malalignment. XR/XR finger RT min 2V IMPRESSION: Soft tissue contusion/edema without acute fracture or dislocation or osteomyelitis on x-ray. Electronically signed by: Scott Garrett MD 05/03/2025 03:51 PM EDT
[2025-05-03 15:29] VITALS: BP 150/72; PULSE 65; RESP 18; TEMP 35.7; O2SAT 98; BMI 34.2
--- NOTE | 2025-05-03 15:31 | ED.GENADULT ---
HPI - General Adult General Chief complaint: Extremity Injury, Upper Stated complaint: Infection R finger Time Seen by Provider: 05/03/25 18:04 History of Present Illness ED Provider: Yanira POLLARD narrative: The patient is a 75-year-old male who has had swelling and discomfort at the radial side of his right distal middle finger. He had something similar in January of this year and was treated with cephalexin with improvement. He contacted his regular doctor about this 2 days ago and was started on cephalexin. He has not been improving. He feels the finger has been getting worse. No fever. The patient denies any history of cold sores or other herpetic illnesses. The patient has a history of atrial flutter for which he had an ablation procedure. He is not currently on anticoagulation. Related Data Home Medications ?Medication ?Instructions ?Recorded ?Confirmed apixaban 5 mg tablet (Eliquis) 5 mg PO BID 02/13/25 02/28/25 Held on 02/28/25. Instructions: Resume on 03/02/25. colchicine 0.6 mg tablet 0.6 mg PO BID 02/13/25 02/28/25 levothyroxine 175 mcg tablet 175 mcg PO DAILY 02/13/25 02/28/25 (Synthroid) metoprolol tartrate 25 mg tablet 25 mg PO DAILY 02/13/25 02/28/25 Previous Rx's ?Medication ?Instructions ?Recorded cephalexin 500 mg capsule 500 mg PO QID #10 caps 05/03/25 doxycycline monohydrate 100 mg 100 mg PO BID #14 tabs 05/03/25 tablet Allergies Allergy/AdvReac Type Severity Reaction Status Date / Time No Known Allergies Allergy Verified 05/03/25 15:31 Review of Systems Review of Systems: Yes all other systems are reviewed and are negative [facility] Past Medical History Medical History Sleep apnea Overweight Obesity, Class I, BMI 30.0-34.9 (see actual BMI) Hypothyroidism History of DVT in adulthood Family history of colon cancer Encounter for screening colonoscopy Surgical History Hx of umbilical hernia repair (02/28/25) History of cardiac ablation for atrial fibrillation H/O colonoscopy (~2005) History of total knee replacement History of vein stripping Hx of surgical procedure History of colonoscopy with polypectomy (~06/26/16) Family History Family History Other Colon cancer Social History Social History Are you a primary inspector health care facilities to a significant other at home: No Do you presently have visiting nurse or other home services: No Alcohol intake: current Alcohol intake frequency: 0-2 drinks per day Patient Tobacco Use Status: Former Tobacco user Smoked in Last 30 Days: No Use of substances other than those prescribed or required for medical reasons: No Advance Directives: No Advance Directives Information Provided: Yes Physical Exam ED Vital Signs: Vital Signs - 24 hr 05/03/25 15:29 05/03/25 19:30 05/03/25 19:44 Temperature 96.2 F L 98.3 F 98.3 F Pulse Rate 65 64 64 Respiratory Rate 18 18 18 Blood Pressure 150/72 H 131/69 131/69 Pulse Oximetry 98 98 98 Oxygen Delivery Method Room Air Room Air Room Air BMI result Body Mass Index 34.2 Const Orientation/consciousness: patient oriented x3 HENMT Other: The patient is awake, alert, pleasant, cooperative. He does not appear in acute distress. Eyes General: appearance normal, both eyes and all related structures Neck Neck: Yes normal visual inspection and Yes full ROM Resp Effort & Inspection: normal respiratory effort Auscultation: clear to auscultation bilaterally Cardio Rate: regular rate Rhythm: regular rhythm Heart sounds: S1 normal heart sound present and S2 normal heart sound present Skin Other: The patient has swelling and discoloration to the radial side of the distal right finger in the paronychial region. Neuro General: patient oriented x3, gait normal, tone normal, moves all extremities, no focal motor deficits and CN's II-XI intact bilaterally Extrem Other: The patient has swelling and erythema and skin discoloration on the radial side of the distal right middle finger in the paronychial region. Course Course Course Narrative: RME, this is a rapid medical exam performed by Raúl Sellers please refer to primary provider for complete H&P- 75-year-old male presents for evaluation of pain and swelling inside tip of his right 3rd finger. On exam he has a paronychia. Plan for x-ray to evaluate for deeper infection. We will likely require drainage Medications Administered Discontinued Medications Generic Name Dose Route Start Last Admin Trade Name Giles PRN Reason Stop Dose Admin Bacitracin 1 appl 05/03/25 19:02 05/03/25 19:33 Bacitracin Oint 0.9 Gm Packet TOPICAL 05/03/25 19:03 1 appl ONCE ONE Administration Protocol Cephalexin HCl 500 mg 05/03/25 19:02 05/03/25 19:33 Cephalexin 500 Mg Capsule PO 05/03/25 19:03 500 mg ONCE ONE Administration Doxycycline Monohydrate 100 mg 05/03/25 19:02 05/03/25 19:32 Doxycycline Monohydrate 100 Mg Capsule PO 05/03/25 19:03 100 mg ONCE ONE Administration Lidocaine HCl 10 ml 05/03/25 18:14 05/03/25 19:33 Lidocaine Hcl 1 % Mpf 5 Ml Vial INFILTRATI 05/03/25 18:15 10 ml ONCE ONE Administration Medical Decision Making Medical Decision Making [facility] Narrative: The patient is a very pleasant 75-year-old male who presents with an infection at the distal portion of the right middle finger. This is probably a paronychia although I considered a possible whitow. The patient does not seem to have risk factors for christel. I explained to the patient the rationale for a drainage procedure. The patient understood and we proceeded. I administered a digital block of the base of the finger using 1% plain lidocaine. After anesthesia was achieved I prepped the skin of the distal finger and the nail with Betadine and used a 11. Blade to elevate the paronychial skin from the nail. This caused a release of pus. I was able to milk a copious amount of pus from the swelling. The pus was cultured. He will be discharged on doxycycline and cephalexin. Discharge Plan Discharge Clinical Impression: Paronychia of finger of right hand Patient Disposition: Home, Self-Care Instructions: Paronychia (ED) Additional Instructions: You seemed to have had a finger infection that we call a paronychia. A lot of pus came out. You has been started on an additional antibiotic called doxycycline. Please take this together with the cephalexin. Keep the hand elevated. Keep the wound covered with bacitracin and a Band-Aid for the next couple of days. You may soak the finger in a cup of warm water with a tsp of Epsom salts 3 or 4 times a day to help it drain. I would recommend avoiding working until it is clearly better and is showing no drainage. Please stay in touch with your regular doctor for additional advice as needed. Return to the emergency room if worse. Prescriptions: New doxycycline monohydrate 100 mg tablet 100 mg PO BID Qty: 14 0RF cephalexin 500 mg capsule 500 mg PO QID Qty: 10 0RF No Action metoprolol tartrate 25 mg tablet 25 mg PO DAILY levothyroxine [Synthroid] 175 mcg tablet 175 mcg PO DAILY colchicine 0.6 mg tablet 0.6 mg PO BID Eliquis 5 mg tablet 5 mg PO BID Referrals: Wilmer Menendez MD [Primary Care Provider, Pediatrics] Stand Alone Forms: Work/School Release Interventions: ED Discharge Assessment Last Done: 05/03/25 19:44 Discharge Date/Time: 05/03/25 19:44 Print Language: Kinyarwanda
[2025-05-03 19:30] VITALS: BP 131/69; PULSE 64; RESP 18; TEMP 36.8; O2SAT 98
[2025-05-03] MEDS: Lidocaine HCl 1 % MPF 5 ML VIAL 10 ML INFILTRATI (19:33)
--- NOTE | 2025-05-03 19:40 | PC.NURSE ---
RN wrapped pts finger with non adherent pad and gauze per providers verbal order. Bactracin was placed on finger before wrapping.
[2025-05-03 19:44] VITALS: BP 131/69; PULSE 64; RESP 18; TEMP 36.8; O2SAT 98
== END 2025-05-03 19:44 | disposition home or self-care (01) ==
PROVIDERS: Emergency Provider Emergency Medicine; PCP Internal Medicine
DX: L03.011 Cellulitis of right finger (principal); M79.644 Pain in right finger(s)
CPT/HCPCS: 73140; 87070; 87147; 87205; 99284; J2003

== ENCOUNTER → 2025-05-03 15:31 | Outpatient (BNV) | payer OTHER, MEDICARE, SELFPAY | PROVIDERS: PCP Internal Medicine; Visit Provider Radiology Diagnostic Radiology | DX: S60.021A Contusion of right index finger without damage to nail, initial encounter (principal) | CPT/HCPCS: 73140 ==